=== PATIENT | male | born 1930 | race Caucasian/White ===

== ENCOUNTER 2018-04-05 05:41 | Day surgery (SDC) | payer MEDICARE, BC ==
[2018-04-02 14:34] VITALS: BMI 31.1
[2018-04-05] MEDS ORDERED: ONDANSETRON 4 MG/2 ML VIAL IVP ONE (05:52)
[2018-04-05] MEDS ORDERED: LACTATED RINGERS 1,000 ML IV SCH (05:52)
[2018-04-05] MEDS ORDERED: HYDROmorphone 0.5 MG/0.5 ML SYRINGE IVP PRN (05:52)
[2018-04-05] MEDS ORDERED: DEXAMETHASONE SOD PHOSPHATE 10 MG/ML 1 ML VIAL IV ONE (05:52)
[2018-04-05] MEDS ORDERED: LIDOCAINE 1% 20 ML VIAL (10MG/ML) FOR IV START INTRADERMA ONE (06:16)
[2018-04-05 06:37] VITALS: TEMP 97.9
[2018-04-05 07:00] LABS: Glucose,Whole Blood 118 mg/dL (75-99)
[2018-04-05] MEDS ORDERED: fentaNYL (PF) 50 MCG/ML 2 ML AMP ONE (07:06)
[2018-04-05] MEDS ORDERED: LIDOCAINE 1% INJ 10MG/ML (20 ML MDV) ONE (07:06)
[2018-04-05] MEDS ORDERED: PROPOFOL 10 MG/ML 20 ML VIAL IV ONE (07:06)
[2018-04-05] MEDS ORDERED: GLYCOPYRROLATE 0.2 MG/ML 2 ML VIAL ONE (07:06)
[2018-04-05 08:24] VITALS: BP 161/79; PULSE 42; RESP 16
[2018-04-05 08:24] LABS: Basophils % (A) 0 %; Eosinophils % (A) 0 %; HCT 45.6 % (39.0-53.0); HGB 15.1 gm/dL (13.0-17.5); Lymphocytes # (A) 2.3 k/uL (1.0-4.8); Lymphocytes % (A) 18 %; MCH 31.5 pg (25.0-35.0); MCV 95.4 fL (80.0-100.0); Mean Platelet Volume 8.8; Monocytes # (A) 0.4 k/uL (0-1.0); Monocytes % (A) 3 %; Neutrophils # (A) 10.3 k/uL (1.3-7.7); Neutrophils % (A) 78 %; RBC 4.78 m/uL (4.30-5.90); RDW 15.5 % (11.5-15.5); WBC 13.2 k/uL (3.8-10.6)
--- NOTE | 2018-04-05 08:34 | OP ---
OPERATIVE REPORT DATE OF PROCEDURE: 04/05/2018 PROCEDURE: Bone marrow aspirate and biopsy, PREOPERATIVE DIAGNOSIS: Thrombocytopenia. POSTOPERATIVE DIAGNOSES: Thrombocytopenia. SITE: Right iliac crest. ANESTHESIA: Local with IV systemic sedation. DETAILS: Utilizing sterile technique, the skin overlying the right iliac crest was prepared with Betadine and alcohol. After adequate sterile draping and systemic sedation, a size 11, 4-inch Jamshidi needle was utilized to access the periosteum with ease. A total of 12 mL of aspirate and 7 mm bone core biopsies were obtained. The patient tolerated the procedure very well. There was no immediate procedure related complication. TOTAL BLOOD LOSS: Less than 1 mL. RESULTS: Pending. MMODL / IJN: [id number] /
[2018-04-05 08:44] LABS: Glucose,Whole Blood 102 mg/dL (75-99)
[2018-04-05 09:00] LABS: Platelet Count 62 k/uL (150-450)
== END 2018-04-05 08:53 | disposition home or self-care (01) ==
LOC: OR 05:41
PROVIDERS: ATTEND Internal Medicine Hematology & Oncology
DX: D69.6 Thrombocytopenia, unspecified (principal); D72.828 Other elevated white blood cell count; I10 Essential (primary) hypertension; E78.5 Hyperlipidemia, unspecified; Z85.038 Personal history of other malignant neoplasm of large intestine; Z86.711 Personal history of pulmonary embolism; Z79.899 Other long term (current) drug therapy; Z88.0 Allergy status to penicillin; Z88.8 Allergy status to other drugs, medicaments and biological substances
CPT/HCPCS: 38222; 85025; J2001; J3010; J2704

== ENCOUNTER 2018-05-22 14:45 | Inpatient (IN) | payer MEDICARE, BC ==
[2018-05-22] MEDS ORDERED: SODIUM CHLORIDE 0.9% 1,000 ML IV STA (15:45)
[2018-05-22] MEDS ORDERED: SODIUM CHLORIDE 0.9% 500 ML IV ONE (15:58)
--- NOTE | 2018-05-22 16:39 | XR ---
EXAMINATION: XR chest 2V DATE AND TIME: 05/22/2018 4:23 PM ORDERING PROVIDER: Marcia Jordan CLINICAL INDICATION: difficulty breathing TECHNIQUE: PA and lateral COMPARISON: 04/03/2014 DESCRIPTION: The lungs are clear. The pleural spaces are negative. The cardiac silhouette is mild-moderately enlarged. The aorta is ectatic. The skeletal structures are intact without focal findings. The soft tissues are unremarkable. IMPRESSION: NO ACUTE PROCESS.
[2018-05-22] MEDS: DILTIAZEM 50 MG in SODIUM CHLORIDE 0.9% 40 ML IV SCH ×2 (16:48→23:20)
[2018-05-22 16:53] LABS: Basophils % (A) 0 %; Eosinophils # (A) 0.1 k/uL (0-0.7); Eosinophils % (A) 1 %; Lymphocytes # (A) 1.2 k/uL (1.0-4.8); Lymphocytes % (A) 10 %; MCH 30.8 pg (25.0-35.0); MCHC 32.6 g/dL (31.0-37.0); MCV 94.5 fL (80.0-100.0); Mean Platelet Volume 7.3; Monocytes # (A) 0.4 k/uL (0-1.0); Monocytes % (A) 3 %; Neutrophils # (A) 10.1 k/uL (1.3-7.7); Neutrophils % (A) 86 %; RBC 4.23 m/uL (4.30-5.90); RDW 15.9 % (11.5-15.5); WBC 11.7 k/uL (3.8-10.6)
[2018-05-22 16:59] LABS: Platelet Count 123 k/uL (150-450)
[2018-05-22 17:01] LABS: Albumin 3.2 g/dL (3.5-5.0); Calcium 8.7 mg/dL (8.4-10.2); Magnesium 2.2 mg/dL (1.6-2.3); Potassium 4.4 mmol/L (3.5-5.1); Total Bilirubin 0.6 mg/dL (0.2-1.3); Total Protein 5.5 g/dL (6.3-8.2)
--- NOTE | 2018-05-22 17:05 | ED ---
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 Patient was seen by Dr. Nick earlier where he stated he had increasing shortness of breath and lower extremity swelling. Patient was sent over for an exacerbation of congestive heart failure. Upon arrival to emergency department patient's vital signs stable. Patient admitted to lower extremity increasing edema, and dyspnea increased from baseline however denied chest pain, palpitations, paresthesias, jaw pain, dizziness, confusion, back pain, abdominal pain, muscle weakness, loss of sensation, ataxia, speech changes or any other symptoms at this time. Patient states that his legs have been increasing swelling over the past few weeks, since his admission at [facility] for atrial fibrillation on May 03. In addition patient admits to right lower extremity erythema. Remainder ROS negative. - Related Data Home Medications Medication Instructions Recorded Confirmed Cholecalciferol [Vitamin D3] 1,000 unit PO DAILY 03/28/14 05/22/18 Finasteride [Proscar] 5 mg PO DAILY 03/28/14 05/22/18 Folic Acid 1 mg PO DAILY 03/28/14 05/22/18 Furosemide [Lasix] 20 mg PO HS 03/28/14 05/22/18 Metoprolol Succinate [Toprol XL] 50 mg PO 03/28/14 05/22/18 Nitroglycerin [Nitro-Time] 6.5 mg PO QAM 03/28/14 05/22/18 Potassium Chloride [K-Tab ER] 10 meq PO DAILY 03/28/14 05/22/18 Quinapril HCl [Accupril] 40 mg PO QAM 03/28/14 05/22/18 Atorvastatin Calcium [Lipitor] 40 mg PO DAILY 03/08/18 05/22/18 predniSONE 40 mg PO BID 04/02/18 05/22/18 Rivaroxaban [Xarelto] 15 mg PO AC-SUPPER 05/22/18 05/22/18 Allergies Allergy/AdvReac Type Severity Reaction Status Date / Time hydroxyzine [From Vistaril] Allergy Confusion Verified 05/22/18 20:34 metoclopramide HCl Allergy Unknown Verified 05/22/18 20:34 [From Reglan] Penicillins Allergy Anaphylaxis Verified 05/22/18 20:34 Review of Systems ROS Statement: Those systems with pertinent positive or pertinent negative responses have been documented in the HPI. ROS Other: All systems not noted in ROS Statement are negative. Constitutional: Denies: fever, chills, weakness, weight change Eyes: Denies: eye pain, vision change ENT: Denies: ear pain, hearing loss Respiratory: Reports: dyspnea. Denies: cough, wheezes, hemoptysis, stridor Cardiovascular: Reports: as per HPI, edema. Denies: chest pain, palpitations, dyspnea on exertion, orthopnea, syncope Gastrointestinal: Denies: abdominal pain, nausea, vomiting, diarrhea, constipation, hematemesis, melena Genitourinary: Denies: urgency, dysuria, frequency, hematuria, discharge Musculoskeletal: Denies: back pain Skin: Reports: as per HPI, change in color Neurological: Denies: headache, weakness, numbness, paresthesias, confusion, abnormal gait, vertigo Past Medical History Past Medical History: Coronary Artery Disease (CAD), Cancer, Heart Failure, Hyperlipidemia, Hypertension, Mitral Valve Prolapse (MVP), Prostate Disorder, Pulmonary Embolus (PE) Additional Past Medical History / Comment(s): STATES HAS "LOW PLATELETS" UNSTEADY ON FEET CURRENTLY, HX COLON CA, diverticulitis, KIDNEY STONE History of Any Multi-Drug Resistant Organisms: None Reported Past Surgical History: Bowel Resection, Hernia Repair, Joint Replacement, Orthopedic Surgery Additional Past Surgical History / Comment(s): TOTAL RIGHT KNEE X2, LEFT EAR SX X2, TABITHA ROT.CUFF, KIDNEY STONE SX, LEFT KNEE ARTHROSCOPY, LEFT KNEE REPLACED, LEFT INDEX FINGER AMPUTATED Past Anesthesia/Blood Transfusion Reactions: No Reported Reaction Past Psychological History: Depression Smoking Status: Never smoker Past Alcohol Use History: Rare Past Drug Use History: None Reported - Past Family History Mother Family Medical History: Cancer Additional Family Medical History / Comment(s): HODGKINS Brother(s) Family Medical History: Diabetes Mellitus Sister(s) Family Medical History: Diabetes Mellitus General Exam - General Exam Comments Initial Comments: General: The patient is awake and alert, in no distress, and does not appear acutely ill. Eye: Pupils are equal, round and reactive to light, extra-ocular movements are intact. No nystagmus. There is normal conjunctiva bilaterally. No signs of icterus. Ears, nose, mouth and throat: There are moist mucous membranes and no oral lesions. Neck: The neck is supple, there is no tenderness or JVD. Cardiovascular: There is a irregular rate and rhythm. No murmur, rub or gallop is appreciated. Respiratory: Lungs are clear to auscultation in all lung sung, no appreciable crackles. respirations are non-labored, breath sounds are equal. No wheezes, stridor, rales, or rhonchi. No retractions or cyanosis. Gastrointestinal: Soft, non-distended, non-tender abdomen without masses or organomegaly noted. There is no rebound or guarding present. No CVA tenderness. Bowel sounds are unremarkable. Musculoskeletal: Normal ROM, no tenderness. Strength 5/5. Sensation intact. Pulses equal bilaterally 2+. Neurological: A&O x 3. CN II-XII intact, There are no obvious motor or sensory deficits. Coordination appears grossly intact. Speech is normal. Skin: Skin is warm and dry and no rashes or lesions are noted. Linear scar midline over sternum. Bilateral lower extremity edema +2 pitting. Erythema of the right lower extremities, not warm to touch. Psychiatric: Cooperative, appropriate mood & affect, normal judgment. Limitations: no limitations Course Vital Signs 05/22/18 05/22/18 05/22/18 15:26 16:47 17:02 Temperature 98.3 F Pulse Rate 76 132 H 124 H Respiratory 18 18 18 Rate Blood Pressure 101/69 127/72 115/80 O2 Sat by Pulse 96 99 100 Oximetry 05/22/18 05/22/18 05/22/18 17:30 18:12 18:32 Temperature Pulse Rate 136 H 122 H 126 H Respiratory 18 18 18 Rate Blood Pressure 126/75 114/78 110/77 O2 Sat by Pulse 99 98 96 Oximetry 05/22/18 05/22/18 19:01 20:01 Temperature 97.8 F 97.0 F L Pulse Rate 114 H 122 H Respiratory 18 18 Rate Blood Pressure 124/87 121/79 O2 Sat by Pulse 96 99 Oximetry EKG Findings - EKG Comments: EKG Findings:: Ventricular rate 126bpm, QRS 94ms, QT/QTc 308/446 Atrial Fibrillation with RVR, left axis deviation. Abnormal EKG. Medical Decision Making - Medical Decision Making Case discussed with Dr. Gooden in detail throughout ER stay. Pt sent from [facility] for CHF exacerbation. Upon arrival pt complained of increased LE edema and dyspnea. Pt was placed on 2L O2 via nasal cannula and continuous monitoring coordinator , EKG obtained revealed Atrial fibrillation with RVR. VS stable BP 104/75. Pt placed on 5mg/hr cardizem drip, given daily dose of xarelo PO, 500 mL bolus of normal saline, BNP, troponin, CBC, CMP, magnesium, PT, PTT/INR, urinalysis obtained. BNP elevated at 5270 concerning for CHF exacerbation-no previous value available for comparison, troponin mildly elevated at 0.[address] Gooden and myself feel this is do to CHF rather than acute coronary syndrome. Pt plt 123 pt has ITP for which he follows Dr. Zamora. Last plt count 116 per paperwork presented. Remainder of laboratory values unremarkable. CXR obtained revealed no pulmonary congestion. Dr. Hess was contacted and spoke to attending Dr. Gooden and pt was admitted with cardiology consult-Dr. Calderon. Pt was transferred to the floor around 8:00pm in stable condition. - Lab Data Result diagrams: 05/22/18 16:42 05/22/18 16:42 Lab Results 05/22/18 05/22/18 05/22/18 Range/Units 16:42 16:42 16:42 WBC 11.7 H (3.8-10.6) k/uL RBC 4.23 L (4.30-5.90) m/uL Hgb 13.0 (13.0-17.5) gm/dL Hct 40.0 (39.0-53.0) % MCV 94.5 (80.0-100.0) fL MCH 30.8 (25.0-35.0) pg MCHC 32.6 (31.0-37.0) g/dL RDW 15.9 H (11.5-15.5) % Plt Count 123 L D (150-450) k/uL Neutrophils % 86 % Lymphocytes % 10 % Monocytes % 3 % Eosinophils % 1 % Basophils % 0 % Neutrophils # 10.1 H (1.3-7.7) k/uL Lymphocytes # 1.2 (1.0-4.8) k/uL Monocytes # 0.4 (0-1.0) k/uL Eosinophils # 0.1 (0-0.7) k/uL Basophils # 0.0 (0-0.2) k/uL PT (9.0-12.0) sec INR (<1.2) APTT (22.0-30.0) sec Sodium 139 (137-145) mmol/L Potassium 4.4 (3.5-5.1) mmol/L Chloride 107 (98-107) mmol/L Carbon Dioxide 26 (22-30) mmol/L Anion Gap 6 mmol/L BUN 38 H (9-20) mg/dL Creatinine 0.90 (0.66-1.25) mg/dL Est GFR (CKD-EPI)AfAm 88 (>60 ml/min/1.73 sqM) Est GFR (CKD-EPI)NonAf 76 (>60 ml/min/1.73 sqM) Glucose 116 H (74-99) mg/dL Calcium 8.7 (8.4-10.2) mg/dL Magnesium 2.2 (1.6-2.3) mg/dL Total Bilirubin 0.6 (0.2-1.3) mg/dL AST 26 (17-59) U/L ALT 50 (21-72) U/L Alkaline Phosphatase 85 (38-126) U/L Total Creatine Kinase 30 L (55-170) U/L CK-MB (CK-2) 1.9 (0.0-2.4) ng/mL CK-MB (CK-2) Rel Index 6.3 Troponin I 0.081 H* (0.000-0.034) ng/mL NT-Pro-B Natriuret Pep pg/mL Total Protein 5.5 L (6.3-8.2) g/dL Albumin 3.2 L (3.5-5.0) g/dL Urine Color Urine Appearance (Clear) Urine pH (5.0-8.0) Ur Specific Toponas (1.001-1.035) Urine Protein (Negative) Urine Glucose (UA) (Negative) Urine Ketones (Negative) Urine Blood (Negative) Urine Nitrite (Negative) Urine Bilirubin (Negative) Urine Urobilinogen (<2.0) mg/dL Ur Leukocyte Esterase (Negative) Urine RBC (0-5) /hpf Urine WBC (0-5) /hpf Ur Squamous Epith Cells (0-4) /hpf Hyaline Casts (0-2) /lpf Urine Mucus (None) /hpf 05/22/18 05/22/18 05/22/18 Range/Units 16:42 16:42 17:40 WBC (3.8-10.6) k/uL RBC (4.30-5.90) m/uL Hgb (13.0-17.5) gm/dL Hct (39.0-53.0) % MCV (80.0-100.0) fL MCH (25.0-35.0) pg MCHC (31.0-37.0) g/dL RDW (11.5-15.5) % Plt Count (150-450) k/uL Neutrophils % % Lymphocytes % % Monocytes % % Eosinophils % % Basophils % % Neutrophils # (1.3-7.7) k/uL Lymphocytes # (1.0-4.8) k/uL Monocytes # (0-1.0) k/uL Eosinophils # (0-0.7) k/uL Basophils # (0-0.2) k/uL PT 10.4 (9.0-12.0) sec INR 1.1 (<1.2) APTT 28.2 (22.0-30.0) sec Sodium (137-145) mmol/L Potassium (3.5-5.1) mmol/L Chloride (98-107) mmol/L Carbon Dioxide (22-30) mmol/L Anion Gap mmol/L BUN (9-20) mg/dL Creatinine (0.66-1.25) mg/dL Est GFR (CKD-EPI)AfAm (>60 ml/min/1.73 sqM) Est GFR (CKD-EPI)NonAf (>60 ml/min/1.73 sqM) Glucose (74-99) mg/dL Calcium (8.4-10.2) mg/dL Magnesium (1.6-2.3) mg/dL Total Bilirubin (0.2-1.3) mg/dL AST (17-59) U/L ALT (21-72) U/L Alkaline Phosphatase (38-126) U/L Total Creatine Kinase (55-170) U/L CK-MB (CK-2) (0.0-2.4) ng/mL CK-MB (CK-2) Rel Index Troponin I (0.000-0.034) ng/mL NT-Pro-B Natriuret Pep 5270 pg/mL Total Protein (6.3-8.2) g/dL Albumin (3.5-5.0) g/dL Urine Color Yellow Urine Appearance Cloudy (Clear) Urine pH 5.0 (5.0-8.0) Ur Specific Toponas 1.017 (1.001-1.035) Urine Protein 1+ H (Negative) Urine Glucose (UA) Negative (Negative) Urine Ketones Negative (Negative) Urine Blood Trace H (Negative) Urine Nitrite Negative (Negative) Urine Bilirubin Negative (Negative) Urine Urobilinogen <2.0 (<2.0) mg/dL Ur Leukocyte Esterase Negative (Negative) Urine RBC <1 (0-5) /hpf Urine WBC <1 (0-5) /hpf Ur Squamous Epith Cells <1 (0-4) /hpf Hyaline Casts 3 H (0-2) /lpf Urine Mucus Rare H (None) /hpf - EKG Data -: EKG Interpreted by Me (and by Dr. Gooden) - Radiology Data Radiology results: report reviewed, image reviewed (by myself and doctor Giacomo) Disposition Clinical Impression: Atrial fibrillation with RVR Disposition: ADMITTED IP TO THIS [facility] Condition: Stable Is patient prescribed a controlled substance at d/c from ED?: No Time of Disposition: 20:10 (05/23/2018)
[2018-05-22 17:10] LABS: INR 1.1 (<1.2); Partial Thromboplastin Time 28.2 sec (22.0-30.0); Prothrombin Time 10.4 sec (9.0-12.0)
[2018-05-22 17:27] LABS: Creatine Kinase MB 1.9 ng/mL (0.0-2.4)
[2018-05-22 17:35] LABS: Troponin I 0.081 ng/mL (0.000-0.034)
[2018-05-22] MEDS ORDERED: RIVAROXABAN 15 MG TAB PO STA (17:41)
[2018-05-22 17:50] LABS: Appearance,Urine Cloudy (Clear); Bilirubin,Urine Negative (Negative); Blood,Urine Trace (Negative); Color,Urine Yellow; Glucose,Urine (UA) Negative (Negative); Hyaline Casts,Urine 3 /lpf (0-2); Ketones,Urine Negative (Negative); Leukocyte Esterase,Urine Negative (Negative); Mucus,Urine Rare /hpf; Nitrite,Urine Negative (Negative); Protein,Urine 1+ (Negative); RBC,Urine <1 /hpf (0-5); Specific Gravity,Urine 1.017 (1.001-1.035); Squamous Epithelial Cell,Urine <1 /hpf (0-4); Urobilinogen,Urine <2.0 mg/dL (<2.0); WBC,Urine <1 /hpf (0-5)
[2018-05-22] MEDS ORDERED: NALOXONE 0.4 MG/ML 1 ML VIAL IV PRN (18:28)
[2018-05-22] MEDS ORDERED: IBUPROFEN 400 MG TAB PO PRN (18:28)
[2018-05-22] MEDS ORDERED: SODIUM CHLORIDE 0.9% 1,000 ML IV SCH (18:30)
[2018-05-22] MEDS ORDERED: FUROSEMIDE 20 MG TAB PO SCH (22:45)
[2018-05-22] MEDS: predniSONE 20 MG TAB PO SCH (23:18)
[2018-05-22] MEDS: METOPROLOL SUCCINATE (ER) 50 MG TAB.ER.24H PO SCH (23:18)
[2018-05-23] MEDS ORDERED: FUROSEMIDE 10 MG/ML 4 ML VIAL IV SCH (08:00)
[2018-05-23] MEDS ORDERED: FUROSEMIDE 10 MG/ML 2 ML VIAL IV SCH (08:00)
[2018-05-23] MEDS: ATORVASTATIN 40 MG TAB PO SCH (09:10)
[2018-05-23] MEDS: POTASSIUM CHLORIDE ER 10 MEQ TAB.ER.PRT PO SCH (09:11)
[2018-05-23] MEDS: LISINOPRIL 20 MG TAB PO SCH (09:11)
[2018-05-23] MEDS: NITROGLYCERIN EXTENDED RELEASE 6.5 MG CAPSULE.ER PO SCH (09:11)
[2018-05-23] MEDS: predniSONE 20 MG TAB PO SCH ×2 (09:18→21:26)
--- NOTE | 2018-05-23 13:48 | P.PN ---
Subjective Progress Note Date: 05/23/18 Principal diagnosis: CHF, A. fib This is an 87-year-old gentleman with known history of ischemic cardiomyopathy, hyperlipidemia, peripheral vascular disease, hypertension, who was admitted to the hospital yesterday by Dr. Calderon with congestive heart failure and atrial fibrillation. Patient was seen and examined today, no accurate intake and output performed. Weight shows that it's actually upper kilograms today. Patient is quite short of breath at the time of our examination. At pressure 110/70 with a heart rate in the low 100s, 98% on room air. White blood cell count 11.7, hemoglobin 13, platelet count 123. Sodium 139, potassium 4.4, BUN 38, creatinine 0.9. Magnesium 2.2, troponin 0.081 and BNP level 5270. It appears that the patient had an echocardiogram with Doppler study performed in April of this year which revealed an ejection fraction of 35% with mild to moderate mitral regurg and moderate aortic regurg. Objective - Vital Signs Vital signs: Vital Signs Temp 97.0 F L 05/23/18 04:00 Pulse 107 H 05/23/18 12:00 Resp 16 05/23/18 12:00 BP 110/74 05/23/18 12:00 Pulse Ox 98 05/23/18 12:00 Intake & Output 05/22/18 05/23/18 05/23/18 18:59 06:59 18:59 Intake Total 82.667 118 Balance 82.667 118 Weight 95.254 kg 94.4 kg Intake: IV 50 Diltiazem 50 mg In Sodium 50 Chloride 0.9% 40 ml @ 5 MG/HR 5 mls/hr IV .Q10H ALEXIS Rx#:[id number] Intake, IV Titration 32.667 Amount Diltiazem 50 mg In Sodium 32.667 Chloride 0.9% 40 ml @ 5 MG/HR 5 mls/hr IV .Q10H ALEXIS Rx#:[id number] Oral 118 Other: Voiding Method Toilet Toilet # Voids 2 - Exam PHYSICAL EXAMINATION: GENERAL: 87-year-old gentleman in no acute distress at the time of our examination HEENT: Head is atraumatic, normocephalic. Pupils equal, round. Sclera anicteric. Conjunctiva are clear. Mucous membranes of the mouth are moist. Neck is supple. There is no elevated jugular venous pressure.] bruit is heard. HEART EXAMINATION: Heart S1 and S2 irregular irregular a systolic ejection murmur is heard at the base CHEST EXAMINATION: Lungs reveal rales bilaterally with diminished air entry to the bases. ABDOMEN: Soft, nontender. Bowel sounds are heard. No organomegaly noted. EXTREMITIES: 2+ peripheral pulses with 1+ evidence of peripheral edema and no calf tenderness noted. NEUROLOGIC patient is awake, alert and oriented ?-3. . - Labs CBC & Chem 7: 05/22/18 16:42 05/22/18 16:42 Labs: Abnormal Lab Results - Last 24 Hours (Table) 05/22/18 05/22/18 05/22/18 Range/Units 16:42 16:42 16:42 WBC 11.7 H (3.8-10.6) k/uL RBC 4.23 L (4.30-5.90) m/uL RDW 15.9 H (11.5-15.5) % Plt Count 123 L D (150-450) k/uL Neutrophils # 10.1 H (1.3-7.7) k/uL BUN 38 H (9-20) mg/dL Glucose 116 H (74-99) mg/dL Total Creatine Kinase 30 L (55-170) U/L Troponin I 0.081 H* (0.000-0.034) ng/mL Total Protein 5.5 L (6.3-8.2) g/dL Albumin 3.2 L (3.5-5.0) g/dL Urine Protein (Negative) Urine Blood (Negative) Hyaline Casts (0-2) /lpf Urine Mucus (None) /hpf 05/22/18 Range/Units 17:40 WBC (3.8-10.6) k/uL RBC (4.30-5.90) m/uL RDW (11.5-15.5) % Plt Count (150-450) k/uL Neutrophils # (1.3-7.7) k/uL BUN (9-20) mg/dL Glucose (74-99) mg/dL Total Creatine Kinase (55-170) U/L Troponin I (0.000-0.034) ng/mL Total Protein (6.3-8.2) g/dL Albumin (3.5-5.0) g/dL Urine Protein 1+ H (Negative) Urine Blood Trace H (Negative) Hyaline Casts 3 H (0-2) /lpf Urine Mucus Rare H (None) /hpf Assessment and Plan Plan: Assessment and plan #1 systolic congestive heart failure acute on chronic #2 Ischemic cardiomyopathy #3 Hyperlipidemia #4 Family history of premature coronary artery disease #5 Hypertension #6 Chronic persistent atrial fibrillation Plan We will continue the patient on current dose of IV Lasix, monitor intake and output closely. Continue Lipitor, lisinopril 40 mg daily, metoprolol 50 mg daily, Nitro-Bid 6.5 daily, K-Dur 10 milligrams daily, Xarelto 15 mg daily. Patient was noted to also be receiving IV fluids, we'll decrease this to 10 mg per hour. DNP note has been reviewed, I agree with a documented findings and plan of care. Patient was seen and examined.
--- NOTE | 2018-05-23 15:17 | US ---
EXAMINATION TYPE: US venous doppler duplex LE RT DATE OF EXAM: 05/23/2018 2:56 PM COMPARISON: NONE CLINICAL HISTORY: edema. SIDE PERFORMED: Right TECHNIQUE: The lower extremity deep venous system is examined utilizing real time linear array sonog domonique with graded compression, doppler sonography and color-flow sonography. VESSELS IMAGED: External Iliac Vein (EIV) Common Femoral Vein Deep Femoral Vein Greater Saphenous Vein * Femoral Vein Popliteal Vein Small Saphenous Vein * Proximal Calf Veins (* superficial vessels) right leg swelling with pitting edema. Right Leg: Negative for DVT Grayscale, color doppler, spectral doppler imaging performed of the deep veins of the right lower ext remity. There is normal flow, compressibility, vascular waveforms. IMPRESSION: No ultrasound evidence for acute DVT in the right lower extremity.
--- NOTE | 2018-05-23 15:17 | P.HPIM ---
History of Present Illness H&P Date: 05/23/18 87 years old female patient of Dr. Calderon and Dr. Jay past medical history of hypertension, hyperlipidemia pulmonary embolism in 1984, history of recently diagnosed with ITP, history of colon cancer, mitral valve prolapse, BPH presents in with lower extremity swelling and uncontrolled heartrate from Dr. Calderon's office. Patient was just admitted in [facility] 2 weeks ago for similar presentation and was discharged on improvement. Echocardiogram done in the hospital suggest EF of 30-35% with hypokinesis of inferior apical and lateral wall. Vitals on ER suggested heart rate of 108, blood pressure 116/68 saturating 98% on 2 L. Labs are suggestive of leukocytosis 11.7, platelet 123, BUN/creatinine 38, creatinine 0.9 one set of troponin with slightly evaluation 0.081, BNP 5270, albumin 3.2 urinalysis was clear. Patient was admitted for acute systolic heart failure and management of lower extremity swelling. Cardiology has already seen the patient started on Lasix 40 IV every 8. Patient was on Cardizem drip which was discontinued midnight mentioned that patient is very weak and is unable to use his walker. Will have physical therapy to evaluate the patient Review of Systems Constitutional: Denies chills, Denies fever, Denies lethargy, Denies malaise, Denies poor appetite, Denies weakness, Denies weight loss Eyes: denies decreased vision, denies diplopia, denies discharge, denies pain Ears: deny: decreased hearing Ears, nose, mouth and throat: Denies dental pain, Denies headache, Denies nasal discharge, Denies nose pain Cardiovascular: Denies chest pain, endorses decreased exercise tolerance, endorses lower extremity edema, Denies high blood pressure, endorses irregular heart beat, Denies palpitations, Denies paroxysmal nocturnal dyspnea, Denies shortness of breath Respiratory: Denies congestion, Denies cough, Denies cough with sputum, Denies dyspnea, Denies home oxygen, Denies wheezing Gastrointestinal: Denies abdominal pain, Denies change in bowel habits, Denies coffee ground emesis, Denies early satiety, Denies excessive gas, Denies heartburn, Denies hematemesis, Denies hematochezia, Denies loss of appetite, Denies nausea, Denies vomiting Genitourinary: Denies dysuria, Denies flank pain, Denies kidney stones, Denies menorrhagia, Denies urgency, Denies urinary frequency Musculoskeletal: Endorses gait dysfunction, Denies limitation of motion, Denies morning stiffness, Denies muscle cramps uses a walker Integumentary: Denies rash, Denies wounds, Denies brittle nails, Denies change in hair/nails, Denies darkening of skin Neurological: Denies balance difficulties, Denies change in speech, Denies double vision, Denies gait dysfunction, Denies loss of vision, Denies motor disturbance, Denies numbness, Denies paralysis, Denies paresthesias, Denies seizures Psychiatric: Denies anxiety, Denies depression Endocrine: Denies excessive sweating, Denies excessive thirst, Denies high blood sugars, Denies palpitations Hematologic/Lymphatic: Denies easy bruising, Denies lymphadenopathy Past Medical History Past Medical History: Cancer, Heart Failure, Hyperlipidemia, Hypertension, Mitral Valve Prolapse (MVP), Prostate Disorder, Pulmonary Embolus (PE) Additional Past Medical History / Comment(s): STATES HAS "LOW PLATELETS" UNSTEADY ON FEET CURRENTLY, HX COLON CA, diverticulitis, KIDNEY STONE History of Any Multi-Drug Resistant Organisms: None Reported Past Surgical History: Bowel Resection, Hernia Repair, Joint Replacement, Orthopedic Surgery Additional Past Surgical History / Comment(s): TOTAL RIGHT KNEE X2, LEFT EAR SX X2, TABITHA ROT.CUFF, KIDNEY STONE SX, LEFT KNEE ARTHROSCOPY, LEFT KNEE REPLACED, LEFT INDEX FINGER AMPUTATED Past Anesthesia/Blood Transfusion Reactions: No Reported Reaction Past Psychological History: Depression Smoking Status: Never smoker Past Alcohol Use History: Rare Past Drug Use History: None Reported - Past Family History Brother(s) Family Medical History: Diabetes Mellitus Sister(s) Family Medical History: Diabetes Mellitus Mother Family Medical History: Cancer Additional Family Medical History / Comment(s): HODGKINS Medications and Allergies Home Medications Medication Instructions Recorded Confirmed Type Cholecalciferol [Vitamin D3] 1,000 unit PO DAILY 03/28/14 05/22/18 History Finasteride [Proscar] 5 mg PO DAILY 03/28/14 05/22/18 History Folic Acid 1 mg PO DAILY 03/28/14 05/22/18 History Furosemide [Lasix] 20 mg PO HS 03/28/14 05/22/18 History Metoprolol Succinate [Toprol XL] 50 mg PO 03/28/14 05/22/18 History Nitroglycerin [Nitro-Time] 6.5 mg PO QAM 03/28/14 05/22/18 History Potassium Chloride [K-Tab ER] 10 meq PO DAILY 03/28/14 05/22/18 History Quinapril HCl [Accupril] 40 mg PO QAM 03/28/14 05/22/18 History Atorvastatin Calcium [Lipitor] 40 mg PO DAILY 03/08/18 05/22/18 History predniSONE 40 mg PO BID 04/02/18 05/22/18 History Rivaroxaban [Xarelto] 15 mg PO AC-SUPPER 05/22/18 05/22/18 History Allergies Allergy/AdvReac Type Severity Reaction Status Date / Time hydroxyzine [From Vistaril] Allergy Confusion Verified 05/22/18 20:34 metoclopramide HCl Allergy Unknown Verified 05/22/18 20:34 [From Reglan] Penicillins Allergy Anaphylaxis Verified 05/22/18 20:34 Physical Exam Vitals: Vital Signs Temp Pulse Pulse Resp BP BP Pulse Ox 05/23/18 12:00 107 H 16 110/74 98 05/23/18 11:36 16 05/23/18 08:00 111 H 16 116/68 98 05/23/18 04:00 97.0 F L 107 H 18 123/79 97 05/23/18 00:00 97.4 F L 108 H 18 102/73 99 05/22/18 20:01 97.0 F L 122 H 18 121/79 99 05/22/18 19:01 97.8 F 114 H 18 124/87 96 05/22/18 18:32 126 H 18 110/77 96 05/22/18 18:12 122 H 18 114/78 98 05/22/18 17:30 136 H 18 126/75 99 05/22/18 17:02 124 H 18 115/80 100 05/22/18 16:47 132 H 18 127/72 99 05/22/18 15:26 98.3 F 76 18 101/69 96 Intake and Output 05/22/18 05/23/18 05/23/18 22:59 06:59 14:59 Intake Total 82.667 118 Balance 82.667 118 Intake: IV 50 Diltiazem 50 mg In Sodium 50 Chloride 0.9% 40 ml @ 5 MG/HR 5 mls/hr IV .Q10H [facility] Rx#:[id number] Intake, IV Titration 32.667 Amount Diltiazem 50 mg In Sodium 32.667 Chloride 0.9% 40 ml @ 5 MG/HR 5 mls/hr IV .Q10H ALEXIS Rx#:[id number] Oral 118 Other: Voiding Method Toilet Toilet # Voids 1 2 Weight 93.4 kg 94.4 kg - Constitutional General appearance: cooperative, no acute distress, obese - EENT Eyes: anicteric sclerae, PERRLA, normal appearance ENT: hearing grossly normal - Neck Neck: no lymphadenopathy, normal ROM, no other, no rigidity, no stridor, no thyromegaly - Respiratory Respiratory: bilateral: CTA, negative: diminished, dullness, rales, rhonchi - Cardiovascular Rhythm: Irregularly irregular Heart sounds: normal: S1, S2 Abnormal Heart Sounds: Positive for 2+ systolic murmur, no diastolic murmur, no rub, no S3 Gallop, no S4 Gallop, no click, bilateral 3+ lower extremity edema - Gastrointestinal General gastrointestinal: normal bowel sounds, soft - Integumentary Integumentary: no rash - Neurologic Neurologic: CNII-XII intact - Musculoskeletal Musculoskeletal: Generalized weakness strength equal bilaterally - Psychiatric Psychiatric: A&O x's 3, appropriate affect Results CBC & Chem 7: 05/22/18 16:42 05/22/18 16:42 Labs: Abnormal Lab Results - Last 24 Hours (Table) 05/22/18 05/22/18 05/22/18 Range/Units 16:42 16:42 16:42 WBC 11.7 H (3.8-10.6) k/uL RBC 4.23 L (4.30-5.90) m/uL RDW 15.9 H (11.5-15.5) % Plt Count 123 L D (150-450) k/uL Neutrophils # 10.1 H (1.3-7.7) k/uL BUN 38 H (9-20) mg/dL Glucose 116 H (74-99) mg/dL Total Creatine Kinase 30 L (55-170) U/L Troponin I 0.081 H* (0.000-0.034) ng/mL Total Protein 5.5 L (6.3-8.2) g/dL Albumin 3.2 L (3.5-5.0) g/dL Urine Protein (Negative) Urine Blood (Negative) Hyaline Casts (0-2) /lpf Urine Mucus (None) /hpf 05/22/18 Range/Units 17:40 WBC (3.8-10.6) k/uL RBC (4.30-5.90) m/uL RDW (11.5-15.5) % Plt Count (150-450) k/uL Neutrophils # (1.3-7.7) k/uL BUN (9-20) mg/dL Glucose (74-99) mg/dL Total Creatine Kinase (55-170) U/L Troponin I (0.000-0.034) ng/mL Total Protein (6.3-8.2) g/dL Albumin (3.5-5.0) g/dL Urine Protein 1+ H (Negative) Urine Blood Trace H (Negative) Hyaline Casts 3 H (0-2) /lpf Urine Mucus Rare H (None) /hpf Thrombosis Risk Factor Assmnt - DVT/VTE Prophylaxis DVT/VTE Prophylaxis: Pharmacologic Prophylaxis ordered - Choose All That Apply Each Factor Represents 1 point: Obesity (BMI >25), Swollen legs (current) Other Risk Factors: Yes Each Risk Factor Represents 3 Points: Age 75 years or older, History of DVT/PE Other congenital or acquired thrombophilia - If yes, enter type in comment: No Thrombosis Risk Factor Assessment Total Risk Factor Score: 8 Thrombosis Risk Factor Assessment Level: High Risk Assessment and Plan Plan: #1 atrial fibrillation with RVR. Continue metoprolol 50 mg at bedtime. Continue xarelto #2 acute systolic congestive heart failure with ejection fraction last reported to be 30-35%. Patient continue on Lasix drip at 10 mg gram per hour. Continue Aldactone 25 mg twice a day. Continue aspirin continue atorvastatin continue lisinopril 40 mg every morning #3 ITP continue to monitor platelets. Continue prednisone at 40 mg twice a day as recommended by Dr. webb. Bone marrow biopsy done recently suggestive of ITP no cancer cells seen as per patient. #4 history of BPH continue finasteride 5 mg by mouth daily #5 history of pulmonary embolism in 1984 denies any recent blood clots. #6 bilateral lower extremity swelling right worse than left with overlying swelling and redness. Ultrasound Doppler lower extremity on the right ordered. If positive will consider doing CTA chest has has history of pulmonary embolism. #7 history of colon cancer status post bowel resection in remission. #8 DVT prophylaxis on xarelto #9 GI prophylaxis with Pepcid 20 mg daily #10 code status full code Patient may need 1-2 inpatient nights for stabilization Disposition PT OT consulted possible [facility] facility due to generalized weakness and decline in functional status at home currently using walker
[2018-05-23] MEDS: RIVAROXABAN 15 MG TAB PO SCH (16:46)
[2018-05-23] MEDS: FUROSEMIDE 250 MG in SODIUM CHLORIDE 0.9% 225 ML IVP SCH (16:46)
[2018-05-23] MEDS: SPIRONOLACTONE 25 MG TAB PO SCH (21:26)
[2018-05-23] MEDS: METOPROLOL SUCCINATE (ER) 50 MG TAB.ER.24H PO SCH (21:26)
[2018-05-24 06:32] LABS: Calcium 8.5 mg/dL (8.4-10.2); Potassium 3.7 mmol/L (3.5-5.1)
[2018-05-24] MEDS ORDERED: DEXTROSE 5% IN WATER 100 ML with AMIODARONE 150 MG IV ONE (08:00)
[2018-05-24] MEDS: ATORVASTATIN 40 MG TAB PO SCH (09:00)
[2018-05-24] MEDS: FINASTERIDE 5 MG TAB PO SCH (09:00)
[2018-05-24] MEDS: SPIRONOLACTONE 25 MG TAB PO SCH ×2 (09:01→20:54)
[2018-05-24] MEDS: POTASSIUM CHLORIDE ER 10 MEQ TAB.ER.PRT PO SCH (09:01)
[2018-05-24] MEDS: predniSONE 20 MG TAB PO SCH ×2 (09:01→20:53)
[2018-05-24] MEDS: AMIODARONE 450 MG in DEXTROSE 5% IN WATER 250 ML IV SCH ×4 (09:19→15:55)
[2018-05-24] MEDS: LISINOPRIL 20 MG TAB PO SCH (09:37)
[2018-05-24] MEDS: NITROGLYCERIN EXTENDED RELEASE 6.5 MG CAPSULE.ER PO SCH (09:37)
[2018-05-24] MEDS ORDERED: NITROGLYCERIN EXTENDED RELEASE 6.5 MG CAPSULE.ER PO SCH (09:39)
[2018-05-24] MEDS ORDERED: LISINOPRIL 20 MG TAB PO SCH (12:00)
--- NOTE | 2018-05-24 14:08 | P.PN ---
Subjective Progress Note Date: 05/24/18 87 years old female patient of Dr. Calderon and Dr. Jay past medical history of hypertension, hyperlipidemia pulmonary embolism in 1984, history of recently diagnosed with ITP, history of colon cancer, mitral valve prolapse, BPH presents in with lower extremity swelling and uncontrolled heartrate from Dr. Calderon's office. Patient was just admitted in [facility] 2 weeks ago for similar presentation and was discharged on improvement. Echocardiogram done in the hospital suggest EF of 30-35% with hypokinesis of inferior apical and lateral wall. Vitals on ER suggested heart rate of 108, blood pressure 116/68 saturating 98% on 2 L. Labs are suggestive of leukocytosis 11.7, platelet 123, BUN/creatinine 38, creatinine 0.9 one set of troponin with slightly evaluation 0.081, BNP 5270, albumin 3.2 urinalysis was clear. Patient was admitted for acute systolic heart failure and management of lower extremity swelling. Cardiology has already seen the patient started on Lasix 40 IV every 8. Patient was on Cardizem drip which was discontinued midnight mentioned that patient is very weak and is unable to use his walker. Will have physical therapy to evaluate the patient 05/24: Patient has been started on amiodarone drip for blood pressure is on the low side. We'll plan to discontinue lisinopril. Lasix drip is also in place which will be decreased to 5 mg per hour. Patient has had improvement of his lower extremity edema. Ultrasound was negative for DVT. We'll plan to add in PT and OT once he is stable and can participate. Objective - Vital Signs Vital signs: Vital Signs Temp 97.5 F L 05/24/18 09:00 Pulse 158 H 05/24/18 09:00 Resp 20 05/24/18 09:00 BP 90/62 05/24/18 10:30 Pulse Ox 98 05/24/18 09:00 Intake & Output 05/23/18 05/24/18 05/24/18 18:59 06:59 18:59 Intake Total 478 180 Output Total 700 900 Balance 608 700 -720 Weight 90.9 kg Intake: Oral 478 180 Output: Urine 700 900 Other: Voiding Method Toilet Toilet # Bowel Movements 2 - Exam - Constitutional General appearance: cooperative, no acute distress, obese - EENT Eyes: anicteric sclerae, PERRLA, normal appearance ENT: hearing grossly normal - Neck Neck: no lymphadenopathy, normal ROM, no other, no rigidity, no stridor, no thyromegaly - Respiratory Respiratory: bilateral: CTA, negative: diminished, dullness, rales, rhonchi - Cardiovascular Rhythm: Irregularly irregular Heart sounds: normal: S1, S2 Abnormal Heart Sounds: Positive for 2+ systolic murmur, no diastolic murmur, no rub, no S3 Gallop, no S4 Gallop, no click, bilateral 3+ lower extremity edema - Gastrointestinal General gastrointestinal: normal bowel sounds, soft - Integumentary Integumentary: no rash - Neurologic Neurologic: CNII-XII intact - Musculoskeletal Musculoskeletal: Generalized weakness strength equal bilaterally - Psychiatric Psychiatric: A&O x's 3, appropriate affect - Labs CBC & Chem 7: 05/22/18 16:42 05/24/18 05:43 Labs: Abnormal Lab Results - Last 24 Hours (Table) 05/23/18 05/23/18 05/24/18 Range/Units 16:19 22:06 05:43 Carbon Dioxide 32 H (22-30) mmol/L BUN 32 H (9-20) mg/dL Glucose 164 H (74-99) mg/dL Troponin I 0.075 H* 0.077 H* (0.000-0.034) ng/mL Assessment and Plan Plan: #1 atrial fibrillation with RVR. Continue metoprolol 25 mg 4 times daily, amiodarone drip, Xarelto. Cardiology consult appreciated. #2 acute systolic heart failure with ejection fraction last reported to be 30-35 %. Patient continue on Lasix drip decreased to 5 mg per hour. Continue Aldactone 25 mg twice a day. Continue atorvastatin area and lisinopril discontinued due to hypotension. #3 ITP continue to monitor platelets. Continue prednisone at 40 mg twice a day as recommended by Dr. Javier. Bone marrow biopsy done recently suggestive of ITP no cancer cells seen as per patient. #4 BPH continue finasteride 5 mg by mouth daily #5 history of pulmonary embolism in 1984 denies any recent blood clots. #6 bilateral lower extremity swelling right worse than left with overlying swelling and redness improving. Ultrasound Doppler lower extremity on the right is negative for DVT. #7 history of colon cancer status post bowel resection in remission. #8 DVT prophylaxis on xarelto #9 GI prophylaxis with Pepcid 20 mg daily #10 code status full code Discharge plan: Home with homecare. PT and OT evaluations. Impression and plan of care have been directed as dictated by the signing physician. Mayela Lenz nurse practitioner acting as scribe for signing physician.
--- NOTE | 2018-05-24 14:59 | P.PN ---
Subjective Progress Note Date: 05/24/18 Principal diagnosis: CHF, A. fib This is an 87-year-old gentleman with known history of ischemic cardiomyopathy, hyperlipidemia, peripheral vascular disease, hypertension, who was admitted to the hospital yesterday by Dr. Calderon with congestive heart failure and atrial fibrillation. Patient was seen and examined today, no accurate intake and output performed. Weight shows that it's actually upper kilograms today. Patient is quite short of breath at the time of our examination. At pressure 110/70 with a heart rate in the low 100s, 98% on room air. White blood cell count 11.7, hemoglobin 13, platelet count 123. Sodium 139, potassium 4.4, BUN 38, creatinine 0.9. Magnesium 2.2, troponin 0.081 and BNP level 5270. It appears that the patient had an echocardiogram with Doppler study performed in April of this year which revealed an ejection fraction of 35% with mild to moderate mitral regurg and moderate aortic regurg.\ 05/24/2018 Patient seen and examined this morning, heart rate up in the 140s to 150s range. IV amiodarone was initiated. He did diuresis through the night last night, his weight is down 4 kg today, 32 as his BUN and 1.5 creatinine today. Overall he does state that his breathing is improving, still appears to be short of breath. Peripheral edema is improving significantly. Blood pressure 96/60 with a heart rate of 120, 98% on 2 L of oxygen. Sodium 138, potassium 3.7 , BUN 32, creatinine 1.1. Venous duplex study negative for DVT in the right leg. Objective - Vital Signs Vital signs: Vital Signs Temp 97.3 F L 05/24/18 12:00 Pulse 125 H 05/24/18 12:00 Resp 18 05/24/18 12:00 BP 92/67 05/24/18 12:00 Pulse Ox 98 05/24/18 12:00 Intake & Output 05/23/18 05/24/18 05/24/18 18:59 06:59 18:59 Intake Total 478 180 Output Total 700 900 Balance 478 700 -720 Weight 90.9 kg Intake: Oral 478 180 Output: Urine 700 900 Other: Voiding Method Toilet Toilet # Bowel Movements 2 - Exam PHYSICAL EXAMINATION: GENERAL: 87-year-old gentleman in no acute distress at the time of our examination HEENT: Head is atraumatic, normocephalic. Pupils equal, round. Sclera anicteric. Conjunctiva are clear. Mucous membranes of the mouth are moist. Neck is supple. There is no elevated jugular venous pressure.] bruit is heard. HEART EXAMINATION: Heart S1 and S2 irregular irregular a systolic ejection murmur is heard at the base CHEST EXAMINATION: Lungs reveal diminished air entry to bilateral bases. ABDOMEN: Soft, nontender. Bowel sounds are heard. No organomegaly noted. EXTREMITIES: 2+ peripheral pulses with trace to 1+ evidence of peripheral edema and no calf tenderness noted. NEUROLOGIC patient is awake, alert and oriented ?-3. . - Labs CBC & Chem 7: 05/22/18 16:42 05/24/18 05:43 Labs: Abnormal Lab Results - Last 24 Hours (Table) 05/23/18 05/23/18 05/24/18 Range/Units 16:19 22:06 05:43 Carbon Dioxide 32 H (22-30) mmol/L BUN 32 H (9-20) mg/dL Glucose 164 H (74-99) mg/dL Troponin I 0.075 H* 0.077 H* (0.000-0.034) ng/mL Assessment and Plan Plan: Assessment and plan #1 systolic congestive heart failure acute on chronic #2 Ischemic cardiomyopathy #3 Hyperlipidemia #4 Family history of premature coronary artery disease #5 Hypertension #6 Chronic persistent atrial fibrillation Plan We will continue the patient on current dose of IV Lasix drip, monitor intake and output closely. Also start the patient on IV amiodarone drip, repeat chest x-ray in the morning. DNP note has been reviewed, I agree with a documented findings and plan of care. Patient was seen and examined.
[2018-05-24 15:15] VITALS: BMI 28.7
[2018-05-24] MEDS: METOPROLOL TARTRATE 25 MG TAB PO SCH ×3 (15:52→20:53)
[2018-05-24] MEDS: FUROSEMIDE 250 MG in SODIUM CHLORIDE 0.9% 225 ML IVP SCH (15:57)
[2018-05-24] MEDS: RIVAROXABAN 15 MG TAB PO SCH (19:09)
[2018-05-25] MEDS: AMIODARONE 450 MG in DEXTROSE 5% IN WATER 250 ML IV SCH ×4 (01:10→09:56)
[2018-05-25] MEDS: ACETAMINOPHEN TAB 325 MG TAB PO PRN ×2 (06:41→20:01)
[2018-05-25 06:43] LABS: HCT 38.8 % (39.0-53.0); HGB 12.5 gm/dL (13.0-17.5); MCH 30.7 pg (25.0-35.0); MCHC 32.3 g/dL (31.0-37.0); Platelet Count 136 k/uL (150-450); RBC 4.08 m/uL (4.30-5.90); WBC 13.9 k/uL (3.8-10.6)
[2018-05-25 07:19] LABS: Calcium 8.6 mg/dL (8.4-10.2); Potassium 3.6 mmol/L (3.5-5.1)
--- NOTE | 2018-05-25 08:30 | XR ---
EXAMINATION TYPE: XR chest 2V DATE OF EXAM: 05/25/2018 COMPARISON: 05/22/2018 HISTORY: 87-year-old male follow-up CHF TECHNIQUE: Frontal and lateral views FINDINGS: Heart mildly enlarged. Dilatation/ectasia of the thoracic aorta is unchanged. Some patchy right mid a nd lower lung opacity has a somewhat strandy appearance suggesting atelectasis. No pleural effusion. IMPRESSION: 1. Mild cardiomegaly without yovanny CHF. 2. Some increasing opacity right mid and lower lung suspected to represent atelectasis.
[2018-05-25] MEDS: ATORVASTATIN 40 MG TAB PO SCH (08:51)
[2018-05-25] MEDS: FINASTERIDE 5 MG TAB PO SCH (08:51)
[2018-05-25] MEDS: SPIRONOLACTONE 25 MG TAB PO SCH ×2 (08:52→20:02)
[2018-05-25] MEDS: predniSONE 20 MG TAB PO SCH ×2 (08:52→20:01)
[2018-05-25] MEDS: METOPROLOL TARTRATE 25 MG TAB PO SCH ×4 (08:52→20:02)
[2018-05-25] MEDS: POTASSIUM CHLORIDE ER 10 MEQ TAB.ER.PRT PO SCH (08:52)
[2018-05-25] MEDS ORDERED: NITROGLYCERIN EXTENDED RELEASE 6.5 MG CAPSULE.ER PO SCH (09:00)
[2018-05-25] MEDS ORDERED: DOCUSATE 100 MG CAP PO PRN (09:10)
[2018-05-25] MEDS ORDERED: MAGNESIUM HYDROXIDE 2,400 MG/10 ML CUP PO PRN (09:11)
[2018-05-25] MEDS: AMIODARONE 200 MG TAB PO SCH ×3 (09:57→20:02)
[2018-05-25] MEDS: DOCUSATE 100 MG CAP PO SCH (11:33)
[2018-05-25] MEDS: FAMOTIDINE 20 MG TAB PO SCH (11:33)
[2018-05-25] MEDS ORDERED: ATORVASTATIN 40 MG TAB PO SCH (12:00)
--- NOTE | 2018-05-25 12:15 | P.PN ---
Subjective Progress Note Date: 05/25/18 Principal diagnosis: CHF, A. aleah This is an 87-year-old gentleman with known history of ischemic cardiomyopathy, hyperlipidemia, peripheral vascular disease, hypertension, who was admitted to the hospital yesterday by Dr. Calderon with congestive heart failure and atrial fibrillation. Patient was seen and examined today, no accurate intake and output performed. Weight shows that it's actually upper kilograms today. Patient is quite short of breath at the time of our examination. At pressure 110/70 with a heart rate in the low 100s, 98% on room air. White blood cell count 11.7, hemoglobin 13, platelet count 123. Sodium 139, potassium 4.4, BUN 38, creatinine 0.9. Magnesium 2.2, troponin 0.081 and BNP level 5270. It appears that the patient had an echocardiogram with Doppler study performed in April of this year which revealed an ejection fraction of 35% with mild to moderate mitral regurg and moderate aortic regurg.\ 05/24/2018 Patient seen and examined this morning, heart rate up in the 140s to 150s range. IV amiodarone was initiated. He did diuresis through the night last night, his weight is down 4 kg today, 32 as his BUN and 1.5 creatinine today. Overall he does state that his breathing is improving, still appears to be short of breath. Peripheral edema is improving significantly. Blood pressure 96/60 with a heart rate of 120, 98% on 2 L of oxygen. Sodium 138, potassium 3.7 , BUN 32, creatinine 1.1. Venous duplex study negative for DVT in the right leg. 05/25/2018 Patient seen and examined this morning, overall states he is feeling significantly better. Blood pressure 98/60, creatinine up to 1.4 today. Repeat chest x-ray does show improvement. We will discontinue the IV Lasix drip and start the patient on IV push Lasix. Once the IV amiodarone drip is completed we will start the patient on oral 200 mg twice a day. Objective - Vital Signs Vital signs: Vital Signs Temp 97.0 F L 05/25/18 08:00 Pulse 101 H 05/25/18 08:00 Resp 20 05/25/18 08:00 BP 91/56 05/25/18 08:00 Pulse Ox 98 05/25/18 08:00 Intake & Output 05/24/18 05/25/18 05/25/18 18:59 06:59 18:59 Intake Total 896.331 499 Output Total 1501 1050 Balance -604.669 -1050 499 Weight 90.9 kg 91.4 kg Intake: Intake, IV Titration 476.331 259 Amount Amiodarone 450 mg In 227.898 259 Dextrose 5% in Water 250 ml @ 1 MG/MIN 34.53 mls/ hr IV .Q7H31M [facility] Rx#: [id number] Dextrose 5% in Water 100 16.6 ml @ 618 mls/hr IV .Q10M ONE with Amiodarone 150 mg Rx#:[id number] Furosemide 250 mg In 231.833 Sodium Chloride 0.9% 225 ml @ 5 MG/HR 5 mls/hr IVP .Q24H [facility] Rx#:[id number] Oral 420 240 Output: Urine 1501 1050 Other: Voiding Method Urinal # Voids 2 - Exam PHYSICAL EXAMINATION: GENERAL: 87-year-old gentleman in no acute distress at the time of our examination HEENT: Head is atraumatic, normocephalic. Pupils equal, round. Sclera anicteric. Conjunctiva are clear. Mucous membranes of the mouth are moist. Neck is supple. There is no elevated jugular venous pressure.] bruit is heard. HEART EXAMINATION: Heart S1 and S2 irregular irregular a systolic ejection murmur is heard at the base CHEST EXAMINATION: Lungs reveal diminished air entry to bilateral bases. ABDOMEN: Soft, nontender. Bowel sounds are heard. No organomegaly noted. EXTREMITIES: 2+ peripheral pulses with trace evidence of peripheral edema and no calf tenderness noted. Amor wrap and dressing in place to the right lower extremity NEUROLOGIC patient is awake, alert and oriented ?-3. . - Labs CBC & Chem 7: 05/25/18 05:54 05/25/18 05:54 Labs: Abnormal Lab Results - Last 24 Hours (Table) 05/25/18 05/25/18 Range/Units 05:54 05:54 WBC 13.9 H (3.8-10.6) k/uL RBC 4.08 L (4.30-5.90) m/uL Hgb 12.5 L (13.0-17.5) gm/dL Hct 38.8 L (39.0-53.0) % RDW 16.0 H (11.5-15.5) % Plt Count 136 L (150-450) k/uL Carbon Dioxide 32 H (22-30) mmol/L BUN 47 H (9-20) mg/dL Creatinine 1.45 H (0.66-1.25) mg/dL Glucose 154 H (74-99) mg/dL Assessment and Plan Plan: Assessment and plan #1 systolic congestive heart failure acute on chronic #2 Ischemic cardiomyopathy #3 Hyperlipidemia #4 Family history of premature coronary artery disease #5 Hypertension #6 Chronic persistent atrial fibrillation Plan We will discontinue the IV Lasix drip and start the patient on IV push Lasix. Once the IV amiodarone drip is finished, we will start the patient on 200 mg by mouth twice a day check lytes BUN and creatinine in the morning. DNP note has been reviewed, I agree with a documented findings and plan of care. Patient was seen and examined.
--- NOTE | 2018-05-25 14:32 | P.PN ---
Subjective Progress Note Date: 05/25/18 87 years old female patient of Dr. Calderon and Dr. Jay past medical history of hypertension, hyperlipidemia pulmonary embolism in 1984, history of recently diagnosed with ITP, history of colon cancer, mitral valve prolapse, BPH presents in with lower extremity swelling and uncontrolled heartrate from Dr. Calderon's office. Patient was just admitted in [facility] 2 weeks ago for similar presentation and was discharged on improvement. Echocardiogram done in the hospital suggest EF of 30-35% with hypokinesis of inferior apical and lateral wall. Vitals on ER suggested heart rate of 108, blood pressure 116/68 saturating 98% on 2 L. Labs are suggestive of leukocytosis 11.7, platelet 123, BUN/creatinine 38, creatinine 0.9 one set of troponin with slightly evaluation 0.081, BNP 5270, albumin 3.2 urinalysis was clear. Patient was admitted for acute systolic heart failure and management of lower extremity swelling. Cardiology has already seen the patient started on Lasix 40 IV every 8. Patient was on Cardizem drip which was discontinued midnight mentioned that patient is very weak and is unable to use his walker. Will have physical therapy to evaluate the patient 05/24: Patient has been started on amiodarone drip for blood pressure is on the low side. We'll plan to discontinue lisinopril. Lasix drip is also in place which will be decreased to 5 mg per hour. Patient has had improvement of his lower extremity edema. Ultrasound was negative for DVT. We'll plan to add in PT and OT once he is stable and can participate. 05/25: Heart rate through the night was still elevated up to 120s and improved this morning. Blood pressure remains on the lower side. Pulse ox 96% on 2 L nasal cannula. White count is 13.9, hemoglobin 12.5, BUN 47 creatinine 1.45. Repeat chest x-ray shows mild cardiomegaly without yovanny heart failure. Some increasing obesity right mid and lower lung suspected to represent atelectasis. Incentive spirometry added. Patient is complaining of constipation for which Colace and milk of magnesia added. Patient is increased redness to the right lower extremity wraps or ole hose with elevation to bilat lower legs. He is currently on IV Lasix 40 mg every 12 hours, amiodarone changed orally 200 mg 3 times daily. Patient states that he gets tired easily with walking. Pulse ox is 97% on room air. Objective - Vital Signs Vital signs: Vital Signs Temp 97.8 F 05/25/18 04:00 Pulse 75 05/25/18 04:00 Resp 16 05/25/18 04:00 BP 98/67 05/25/18 04:00 Pulse Ox 96 05/25/18 04:00 Intake & Output 05/24/18 05/25/18 05/25/18 18:59 06:59 18:59 Intake Total 896.331 240 Output Total 1501 1050 Balance -604.669 -1050 240 Weight 90.9 kg 91.4 kg Intake: Intake, IV Titration 476.331 Amount Amiodarone 450 mg In 227.898 Dextrose 5% in Water 250 ml @ 1 MG/MIN 34.53 mls/ hr IV .Q7H31M [facility] Rx#: [id number] Dextrose 5% in Water 100 16.6 ml @ 618 mls/hr IV .Q10M ONE with Amiodarone 150 mg Rx#:[id number] Furosemide 250 mg In 231.833 Sodium Chloride 0.9% 225 ml @ 5 MG/HR 5 mls/hr IVP .Q24H [facility] Rx#:[id number] Oral 420 240 Output: Urine 1501 1050 Other: Voiding Method Urinal # Voids 2 - Exam - Constitutional General appearance: cooperative, no acute distress, obese - EENT Eyes: anicteric sclerae, PERRLA, normal appearance ENT: hearing grossly normal - Neck Neck: no lymphadenopathy, normal ROM, no other, no rigidity, no stridor, no thyromegaly - Respiratory Respiratory: bilateral: CTA, negative: diminished, dullness, rales, rhonchi - Cardiovascular Rhythm: Irregularly irregular Heart sounds: normal: S1, S2 Abnormal Heart Sounds: Positive for 2+ systolic murmur, no diastolic murmur, no rub, no S3 Gallop, no S4 Gallop, no click, bilateral 3+ lower extremity edema - Gastrointestinal General gastrointestinal: normal bowel sounds, soft - Integumentary Integumentary: no rash - Neurologic Neurologic: CNII-XII intact - Musculoskeletal Musculoskeletal: Generalized weakness strength equal bilaterally - Psychiatric Psychiatric: A&O x's 3, appropriate affect - Labs CBC & Chem 7: 05/25/18 05:54 05/25/18 05:54 Labs: Abnormal Lab Results - Last 24 Hours (Table) 05/25/18 05/25/18 Range/Units 05:54 05:54 WBC 13.9 H (3.8-10.6) k/uL RBC 4.08 L (4.30-5.90) m/uL Hgb 12.5 L (13.0-17.5) gm/dL Hct 38.8 L (39.0-53.0) % RDW 16.0 H (11.5-15.5) % Plt Count 136 L (150-450) k/uL Carbon Dioxide 32 H (22-30) mmol/L BUN 47 H (9-20) mg/dL Creatinine 1.45 H (0.66-1.25) mg/dL Glucose 154 H (74-99) mg/dL Assessment and Plan Plan: #1 atrial fibrillation with RVR. Continue metoprolol 25 mg 4 times daily, amiodarone drip has been discontinued, oral amiodarone 200 mg 3 times daily, continue Xarelto. Cardiology consult appreciated. #2 acute systolic heart failure with ejection fraction last reported to be 30-35 %. Now on IV Lasix 40 mg twice daily. Continue Aldactone 25 mg twice a day. Continue atorvastatin. Lisinopril discontinued due to hypotension. #3 ITP continue to monitor platelets. Continue prednisone at 40 mg twice a day as recommended by Dr. Javier. Bone marrow biopsy done recently suggestive of ITP no cancer cells seen as per patient. #4 BPH continue finasteride 5 mg by mouth daily #5 history of pulmonary embolism in 1984 denies any recent blood clots. #6 bilateral lower extremity swelling right worse than left with overlying swelling. Ultrasound Doppler lower extremity on the right is negative for DVT. #7 history of colon cancer status post bowel resection in remission. #8 DVT prophylaxis on xarelto #9 GI prophylaxis with Pepcid 20 mg daily #10 code status full code Discharge plan: Home with homecare. PT and OT evaluations. Impression and plan of care have been directed as dictated by the signing physician. Mayela Lenz nurse practitioner acting as scribe for signing physician.
[2018-05-25] MEDS: RIVAROXABAN 15 MG TAB PO SCH (16:03)
[2018-05-25] MEDS: FUROSEMIDE 10 MG/ML 4 ML VIAL IV SCH (20:02)
[2018-05-26] MEDS: ACETAMINOPHEN TAB 325 MG TAB PO PRN (04:33)
[2018-05-26 06:36] LABS: Calcium 8.6 mg/dL (8.4-10.2); Potassium 4.2 mmol/L (3.5-5.1)
[2018-05-26] MEDS: FAMOTIDINE 20 MG TAB PO SCH (08:18)
[2018-05-26] MEDS: ATORVASTATIN 40 MG TAB PO SCH (08:18)
[2018-05-26] MEDS: SPIRONOLACTONE 25 MG TAB PO SCH ×2 (08:18→20:17)
[2018-05-26] MEDS: METOPROLOL TARTRATE 25 MG TAB PO SCH ×4 (08:18→20:17)
[2018-05-26] MEDS: DOCUSATE 100 MG CAP PO SCH (08:18)
[2018-05-26] MEDS: FINASTERIDE 5 MG TAB PO SCH (08:18)
[2018-05-26] MEDS: FUROSEMIDE 10 MG/ML 4 ML VIAL IV SCH (08:18)
[2018-05-26] MEDS: AMIODARONE 200 MG TAB PO SCH ×3 (08:18→20:17)
[2018-05-26] MEDS: POTASSIUM CHLORIDE ER 10 MEQ TAB.ER.PRT PO SCH (08:19)
[2018-05-26] MEDS: predniSONE 20 MG TAB PO SCH ×2 (08:19→20:17)
--- NOTE | 2018-05-26 09:28 | P.PN ---
Subjective Progress Note Date: 05/26/18 Principal diagnosis: HF with exacerbation Patient continued to be hemodynamically stable but still experiencing shortness of breath with minimal activities and was short of breath by going to the bathroom. Patient stated that he is feeling better overall since admission but still weak and lethargic and nursing staff reported tachycardia with moving around his bed. Patient is denying chest pain nausea vomiting abdominal pain or dizziness Objective - Vital Signs Vital signs: Vital Signs Temp 96.9 F L 05/26/18 08:00 Pulse 99 05/26/18 08:00 Resp 18 05/26/18 08:00 BP 133/85 05/26/18 08:00 Pulse Ox 93 L 05/26/18 08:00 Intake & Output 05/25/18 05/26/18 05/26/18 18:59 06:59 18:59 Intake Total 1039 240 Output Total 200 Balance 1039 40 Weight 91.8 kg Intake: Intake, IV Titration 259 Amount Amiodarone 450 mg In 259 Dextrose 5% in Water 250 ml @ 1 MG/MIN 34.53 mls/ hr IV .Q7H31M [facility] Rx#: [id number] Oral 780 240 Output: Urine 200 Other: Voiding Method Urinal Toilet Urinal # Voids 2 0 - Exam Gen.: in stated age, no acute distress Heart: Normal S1-S2 Lungs: Diminished bilaterally Abdomen: Soft, no tenderness, positive bowel sounds in all 4 quadrant no guarding or rebound Skin: No new rash Psych: Alert and oriented 3 Neuro: No focal deficit Lower extremity improved edema according to the patient - Labs CBC & Chem 7: 05/25/18 05:54 05/26/18 06:11 Labs: Abnormal Lab Results - Last 24 Hours (Table) 05/26/18 Range/Units 06:11 Sodium 135 L (137-145) mmol/L Carbon Dioxide 31 H (22-30) mmol/L BUN 60 H (9-20) mg/dL Creatinine 1.70 H (0.66-1.25) mg/dL Glucose 161 H (74-99) mg/dL Assessment and Plan Plan: 1. Acute systolic heart failure exacerbation. 2. Ischemic cardiomyopathy area 3. Atrial fibrillation with recent rapid ventricular response. 4. ITP on daily prednisone. 5. Benign prostatic hypertrophy. 6. History of colon cancer status post resection. 7. Severe debility and deconditioning. 8. Acute kidney injury likely secondary to diuretics. I have discussed the plan with the patient and nursing staff at the bedside when I would like to continue cardioprotective medication, consult physical and neck patient will therapy for further evaluation, decrease Lasix dose and monitor kidney function closely, follow-up with cardiology recommendation regarding discharge planning and consider switching to oral Lasix in preparation for discharge. Will follow-up with hematology oncology regarding prednisone dose which was reduced recently to 40 mg daily and monitor platelets closely during this hospital stay. Plan discussed with patient who is agreeable to the above and hoping to go home in the next few days
[2018-05-26] MEDS: RIVAROXABAN 15 MG TAB PO SCH (17:15)
[2018-05-27] MEDS: SPIRONOLACTONE 25 MG TAB PO SCH ×2 (08:38→21:14)
[2018-05-27] MEDS: METOPROLOL TARTRATE 25 MG TAB PO SCH ×4 (08:38→21:14)
[2018-05-27] MEDS: predniSONE 20 MG TAB PO SCH ×2 (08:39→21:14)
[2018-05-27] MEDS: AMIODARONE 200 MG TAB PO SCH ×3 (08:39→21:14)
[2018-05-27] MEDS: ATORVASTATIN 40 MG TAB PO SCH (08:39)
[2018-05-27] MEDS: FUROSEMIDE 40 MG TAB PO SCH (08:39)
[2018-05-27] MEDS: POTASSIUM CHLORIDE ER 10 MEQ TAB.ER.PRT PO SCH (08:39)
[2018-05-27] MEDS: DOCUSATE 100 MG CAP PO SCH (08:39)
[2018-05-27] MEDS: FINASTERIDE 5 MG TAB PO SCH (08:39)
[2018-05-27] MEDS: FAMOTIDINE 20 MG TAB PO SCH (08:39)
[2018-05-27 09:40] LABS: Calcium 8.7 mg/dL (8.4-10.2); Potassium 4.7 mmol/L (3.5-5.1)
[2018-05-27] MEDS: RIVAROXABAN 15 MG TAB PO SCH (17:12)
--- NOTE | 2018-05-27 18:52 | P.PN ---
Subjective Progress Note Date: 05/27/18 Principal diagnosis: HF with exacerbation Patient continued to be hemodynamically stable but still experiencing shortness of breath with minimal activities and was short of breath by going to the bathroom. Patient was ambulating this morning in the room and nursing staff reported improvement in the last 24 hours and his functional status. Patient is sleeping flat in bed using only one pillow. Patient is denying chest pain nausea vomiting abdominal pain or dizziness Objective - Vital Signs Vital signs: Vital Signs Temp 97.4 F L 05/27/18 15:03 Pulse 87 05/27/18 16:00 Resp 18 05/27/18 16:00 BP 123/52 05/27/18 15:03 Pulse Ox 96 05/27/18 15:03 Intake & Output 05/26/18 05/27/18 05/27/18 18:59 06:59 18:59 Intake Total 702 240 Output Total 400 500 600 Balance 302 500 -360 Weight 92 kg 92 kg Intake: Oral 702 240 Output: Urine 400 500 600 Other: Voiding Method Toilet Urinal Urinal Urinal Diaper # Voids 2 # Bowel Movements 1 - Exam Gen.: in stated age, no acute distress Heart: Normal S1-S2 Lungs: Diminished bilaterally Abdomen: Soft, no tenderness, positive bowel sounds in all 4 quadrant no guarding or rebound Skin: No new rash Psych: Alert and oriented 3 Neuro: No focal deficit Lower extremity improved edema according to the patient - Labs CBC & Chem 7: 05/25/18 05:54 05/27/18 09:10 Labs: Abnormal Lab Results - Last 24 Hours (Table) 05/27/18 Range/Units 09:10 Sodium 133 L (137-145) mmol/L Chloride 97 L (98-107) mmol/L BUN 54 H (9-20) mg/dL Creatinine 1.40 H (0.66-1.25) mg/dL Glucose 282 H (74-99) mg/dL Assessment and Plan Plan: 1. Acute systolic heart failure exacerbation. 2. Ischemic cardiomyopathy area 3. Atrial fibrillation with recent rapid ventricular response. 4. ITP on daily prednisone. 5. Benign prostatic hypertrophy. 6. History of colon cancer status post resection. 7. Severe debility and deconditioning. 8. Acute kidney injury likely secondary to diuretics. Patient was switched to oral diuretics and currently tolerating well I would like to continue monitoring his vital signs closely repeat blood work in the morning avoid nephrotoxic medication and have physical nutritional therapy evaluated the patient in the morning regarding discharge planning patient is agreeable to the current treatment plan and we will continue current dose of steroids which need to be tapered down slowly by hematology on an outpatient basis
[2018-05-28 06:58] LABS: Glucose,Whole Blood 160 mg/dL (75-99)
[2018-05-28 08:22] LABS: Calcium 8.7 mg/dL (8.4-10.2); Potassium 4.9 mmol/L (3.5-5.1)
--- NOTE | 2018-05-28 08:33 | PN ---
PROGRESS NOTE This patient has a history of cardiomyopathy and patient was admitted with biventricular failure. Patient has been diuresed with IV Lasix. He is feeling better. He is not in any respiratory distress. Lying comfortably in the bed without any orthopnea or PND but he does feel weak and tired. The patient is afebrile blood pressure is 133/85 per minute. The oxygen saturation is 95%. The patient's urine output remains fairly good. Heart: First and second heart sounds are normal. The lungs are fairly clear to auscultation and percussion. Patient's creatinine is 1.7. Chest x-ray shows minimal atelectasis. FINAL IMPRESSION: This patient's congestive heart failure has resolved. The patient has possible some evidence of cellulitis in the leg. The swelling in the legs is improved. Patient is changed to p.o. Lasix. We will have physical therapy to see the patient and increase his activity. Patient may need to go to the rehab unit. MMNOVA / IJN: [id number] /
[2018-05-28] MEDS: AMIODARONE 200 MG TAB PO SCH ×3 (08:50→21:04)
[2018-05-28] MEDS: FINASTERIDE 5 MG TAB PO SCH (08:50)
[2018-05-28] MEDS: predniSONE 20 MG TAB PO SCH ×2 (08:50→20:47)
[2018-05-28] MEDS: ATORVASTATIN 40 MG TAB PO SCH (08:50)
[2018-05-28] MEDS: DOCUSATE 100 MG CAP PO SCH (08:50)
[2018-05-28] MEDS: FAMOTIDINE 20 MG TAB PO SCH (08:50)
[2018-05-28] MEDS: METOPROLOL TARTRATE 25 MG TAB PO SCH ×4 (08:50→21:04)
[2018-05-28] MEDS: POTASSIUM CHLORIDE ER 10 MEQ TAB.ER.PRT PO SCH (08:50)
[2018-05-28] MEDS: FUROSEMIDE 40 MG TAB PO SCH (08:50)
[2018-05-28] MEDS: SPIRONOLACTONE 25 MG TAB PO SCH ×2 (08:50→20:48)
--- NOTE | 2018-05-28 15:04 | XR ---
EXAMINATION TYPE: XR chest 2V DATE OF EXAM: 05/28/2018 COMPARISON: May 25, 2018 HISTORY: Shortness of breath TECHNIQUE: Frontal and lateral views of the chest are obtained. FINDINGS: Scattered senescent parenchymal changes noted. Hyperinflation compatible with COPD. No evidence for infiltrate. No evidence for atelectasis. Heart size is stable. Mediastinal structures are stable and grossly unremarkable. No evidence for hilar prominence. Degenerative changes dorsal spine. IMPRESSION: 1. No evidence for acute pulmonary disease.
[2018-05-28] MEDS: RIVAROXABAN 15 MG TAB PO SCH (16:57)
[2018-05-28] MEDS: ACETAMINOPHEN TAB 325 MG TAB PO PRN (20:46)
[2018-05-29 05:55] VITALS: BP 157/67; PULSE 66; RESP 17; TEMP 98
[2018-05-29] MEDS: DOCUSATE 100 MG CAP PO SCH (07:10)
[2018-05-29] MEDS: AMIODARONE 200 MG TAB PO SCH (07:10)
[2018-05-29] MEDS: ATORVASTATIN 40 MG TAB PO SCH (07:10)
[2018-05-29] MEDS: FINASTERIDE 5 MG TAB PO SCH (07:10)
[2018-05-29] MEDS: FAMOTIDINE 20 MG TAB PO SCH (07:10)
[2018-05-29] MEDS: METOPROLOL TARTRATE 25 MG TAB PO SCH ×2 (07:11→13:26)
[2018-05-29] MEDS: FUROSEMIDE 40 MG TAB PO SCH (07:11)
[2018-05-29] MEDS: predniSONE 20 MG TAB PO SCH (07:11)
[2018-05-29] MEDS: POTASSIUM CHLORIDE ER 10 MEQ TAB.ER.PRT PO SCH (07:11)
[2018-05-29] MEDS: SPIRONOLACTONE 25 MG TAB PO SCH (07:12)
--- NOTE | 2018-05-29 12:58 | P.PN ---
Subjective Progress Note Date: 05/28/18 87 years old female patient of Dr. Calderon and Dr. Jay past medical history of hypertension, hyperlipidemia pulmonary embolism in 1984, history of recently diagnosed with ITP, history of colon cancer, mitral valve prolapse, BPH presents in with lower extremity swelling and uncontrolled heartrate from Dr. Calderon's office. Patient was just admitted in [facility] 2 weeks ago for similar presentation and was discharged on improvement. Echocardiogram done in the hospital suggest EF of 30-35% with hypokinesis of inferior apical and lateral wall. Vitals on ER suggested heart rate of 108, blood pressure 116/68 saturating 98% on 2 L. Labs are suggestive of leukocytosis 11.7, platelet 123, BUN/creatinine 38, creatinine 0.9 one set of troponin with slightly evaluation 0.081, BNP 5270, albumin 3.2 urinalysis was clear. Patient was admitted for acute systolic heart failure and management of lower extremity swelling. Cardiology has already seen the patient started on Lasix 40 IV every 8. Patient was on Cardizem drip which was discontinued midnight mentioned that patient is very weak and is unable to use his walker. Will have physical therapy to evaluate the patient 05/24: Patient has been started on amiodarone drip for blood pressure is on the low side. We'll plan to discontinue lisinopril. Lasix drip is also in place which will be decreased to 5 mg per hour. Patient has had improvement of his lower extremity edema. Ultrasound was negative for DVT. We'll plan to add in PT and OT once he is stable and can participate. 05/25: Heart rate through the night was still elevated up to 120s and improved this morning. Blood pressure remains on the lower side. Pulse ox 96% on 2 L nasal cannula. White count is 13.9, hemoglobin 12.5, BUN 47 creatinine 1.45. Repeat chest x-ray shows mild cardiomegaly without yovanny heart failure. Some increasing obesity right mid and lower lung suspected to represent atelectasis. Incentive spirometry added. Patient is complaining of constipation for which Colace and milk of magnesia added. Patient is increased redness to the right lower extremity wraps or ole hose with elevation to bilat lower legs. He is currently on IV Lasix 40 mg every 12 hours, amiodarone changed orally 200 mg 3 times daily. Patient states that he gets tired easily with walking. Pulse ox is 97% on room air. 05/26: Patient continued to be hemodynamically stable but still experiencing shortness of breath with minimal activities and was short of breath by going to the bathroom. Patient stated that he is feeling better overall since admission but still weak and lethargic and nursing staff reported tachycardia with moving around his bed. Patient is denying chest pain nausea vomiting abdominal pain or dizziness 05/27: Patient continued to be hemodynamically stable but still experiencing shortness of breath with minimal activities and was short of breath by going to the bathroom. Patient was ambulating this morning in the room and nursing staff reported improvement in the last 24 hours and his functional status. Patient is sleeping flat in bed using only one pillow. Patient is denying chest pain nausea vomiting abdominal pain or dizziness 05/28: Patient is known to have a few crackles in the bases today. He seems to be having difficulty moving in bed and we will ask for physical therapy to reassess. Patient is currently planned for discharge home with home care but he may benefit from subacute rehab. He is reaching 1500 on his incentive spirometry. Pulse ox is 95% on room air. Repeat chest x-ray ordered that shows no acute findings. Anticipate discharge tomorrow. Objective - Vital Signs Vital signs: Vital Signs Temp 97.2 F L 05/27/18 12:00 Pulse 87 05/27/18 12:00 Resp 18 05/27/18 12:00 BP 105/78 05/27/18 12:00 Pulse Ox 95 05/27/18 12:00 Intake & Output 05/26/18 05/27/18 05/27/18 18:59 06:59 18:59 Intake Total 702 240 Output Total 400 500 600 Balance 302 -500 -360 Weight 92 kg Intake: Oral 702 240 Output: Urine 400 500 600 Other: Voiding Method Toilet Urinal Urinal Urinal # Voids 2 # Bowel Movements 1 - Exam - Constitutional General appearance: cooperative, no acute distress, obese - EENT Eyes: anicteric sclerae, PERRLA, normal appearance ENT: hearing grossly normal - Neck Neck: no lymphadenopathy, normal ROM, no other, no rigidity, no stridor, no thyromegaly - Respiratory Respiratory: bilateral: CTA, negative: diminished, dullness, rales, rhonchi - Cardiovascular Rhythm: Irregularly irregular Heart sounds: normal: S1, S2 Abnormal Heart Sounds: Positive for 2+ systolic murmur, no diastolic murmur, no rub, no S3 Gallop, no S4 Gallop, no click, bilateral 3+ lower extremity edema - Gastrointestinal General gastrointestinal: normal bowel sounds, soft - Integumentary Integumentary: no rash - Neurologic Neurologic: CNII-XII intact - Musculoskeletal Musculoskeletal: Generalized weakness strength equal bilaterally - Psychiatric Psychiatric: A&O x's 3, appropriate affect - Labs CBC & Chem 7: 05/25/18 05:54 05/28/18 07:26 Labs: Abnormal Lab Results - Last 24 Hours (Table) 05/27/18 Range/Units 09:10 Sodium 133 L (137-145) mmol/L Chloride 97 L (98-107) mmol/L BUN 54 H (9-20) mg/dL Creatinine 1.40 H (0.66-1.25) mg/dL Glucose 282 H (74-99) mg/dL Assessment and Plan Plan: #1 atrial fibrillation with RVR with chronic atrial fibrillation. Continue metoprolol 25 mg 4 times daily, amiodarone drip has been discontinued, oral amiodarone 200 mg 3 times daily, continue Xarelto. Cardiology consult appreciated. #2 acute systolic heart failure with ejection fraction last reported to be 30-35 %. Now on PO Lasix 40 mg daily. Continue Aldactone 25 mg twice a day. Continue atorvastatin. Lisinopril discontinued due to hypotension. #3 ITP continue to monitor platelets. Continue prednisone at 40 mg twice a day as recommended by Dr. Javier. Bone marrow biopsy done recently suggestive of ITP no cancer cells seen as per patient. #4 BPH continue finasteride 5 mg by mouth daily #5 history of pulmonary embolism in 1984 denies any recent blood clots. #6 bilateral lower extremity swelling right worse than left with overlying swelling. Ultrasound Doppler lower extremity on the right is negative for DVT. #7 history of colon cancer status post bowel resection in remission. #8 DVT prophylaxis on xarelto #9 GI prophylaxis with Pepcid 20 mg daily #10 code status full code Discharge plan: Home with homecare. PT and OT evaluations. Possible subacute rehab. Impression and plan of care have been directed as dictated by the signing physician. Mayela Lenz nurse practitioner acting as scribe for signing physician.
--- NOTE | 2018-05-29 13:09 | P.DS ---
Providers Date of admission: 05/22/18 19:00 Expected date of discharge: 05/29/18 Attending physician: Gloria Hess MD Consults: 05/22/18 18:28 Consult Physician Stat Consulting Provider: Bita Calderon Consult Reason/Comments: Direct Admit under [facility] Do you want consulting provider notified?: Yes Primary care physician: Enedelia Jay Hospital Course: 87 years old female patient of Dr. Calderon and Dr. Jay past medical history of hypertension, hyperlipidemia pulmonary embolism in 1984, history of recently diagnosed with ITP, history of colon cancer, mitral valve prolapse, BPH presents in with lower extremity swelling and uncontrolled heartrate from Dr. Calderon's office. Patient was just admitted in [facility] 2 weeks ago for similar presentation and was discharged on improvement. Echocardiogram done in the hospital suggest EF of 30-35% with hypokinesis of inferior apical and lateral wall. Vitals on ER suggested heart rate of 108, blood pressure 116/68 saturating 98% on 2 L. Labs are suggestive of leukocytosis 11.7, platelet 123, BUN/creatinine 38, creatinine 0.9 one set of troponin with slightly evaluation 0.081, BNP 5270, albumin 3.2 urinalysis was clear. Patient was admitted for acute systolic heart failure and management of lower extremity swelling. Cardiology has already seen the patient started on Lasix 40 IV every 8. Patient was on Cardizem drip which was discontinued midnight mentioned that patient is very weak and is unable to use his walker. Will have physical therapy to evaluate the patient 05/24: Patient has been started on amiodarone drip for blood pressure is on the low side. We'll plan to discontinue lisinopril. Lasix drip is also in place which will be decreased to 5 mg per hour. Patient has had improvement of his lower extremity edema. Ultrasound was negative for DVT. We'll plan to add in PT and OT once he is stable and can participate. 05/25: Heart rate through the night was still elevated up to 120s and improved this morning. Blood pressure remains on the lower side. Pulse ox 96% on 2 L nasal cannula. White count is 13.9, hemoglobin 12.5, BUN 47 creatinine 1.45. Repeat chest x-ray shows mild cardiomegaly without yovanny heart failure. Some increasing obesity right mid and lower lung suspected to represent atelectasis. Incentive spirometry added. Patient is complaining of constipation for which Colace and milk of magnesia added. Patient is increased redness to the right lower extremity wraps or ole hose with elevation to bilat lower legs. He is currently on IV Lasix 40 mg every 12 hours, amiodarone changed orally 200 mg 3 times daily. Patient states that he gets tired easily with walking. Pulse ox is 97% on room air. 05/26: Patient continued to be hemodynamically stable but still experiencing shortness of breath with minimal activities and was short of breath by going to the bathroom. Patient stated that he is feeling better overall since admission but still weak and lethargic and nursing staff reported tachycardia with moving around his bed. Patient is denying chest pain nausea vomiting abdominal pain or dizziness 05/27: Patient continued to be hemodynamically stable but still experiencing shortness of breath with minimal activities and was short of breath by going to the bathroom. Patient was ambulating this morning in the room and nursing staff reported improvement in the last 24 hours and his functional status. Patient is sleeping flat in bed using only one pillow. Patient is denying chest pain nausea vomiting abdominal pain or dizziness 05/28: Patient is known to have a few crackles in the bases today. He seems to be having difficulty moving in bed and we will ask for physical therapy to reassess. Patient is currently planned for discharge home with home care but he may benefit from subacute rehab. He is reaching 1500 on his incentive spirometry. Pulse ox is 95% on room air. Repeat chest x-ray ordered that shows no acute findings. Anticipate discharge tomorrow. 05/29: Patient is complaining of lightheadedness when he stands. We are adjusting his amiodarone to only twice daily and patient instructed to get up slowly. Patient will have follow-up with Dr. Jay within the next week. Patient did not meet criteria for subacute rehab and will be discharged home today in stable condition. Discharge diagnoses: #1 atrial fibrillation with RVR with chronic atrial fibrillation. #2 acute systolic heart failure with ejection fraction last reported to be 30-35 %. #3 ITP #4 BPH #5 history of pulmonary embolism in 1984 #6 bilateral lower extremity swelling right worse than left with overlying swelling. Ultrasound Doppler lower extremity on the right is negative for DVT. #7 history of colon cancer status post bowel resection in remission. Discharge plan: Home with [facility]. Impression and plan of care have been directed as dictated by the signing physician. Mayela Lenz nurse practitioner acting as scribe for signing physician. Patient Condition at Discharge: Good Plan - Discharge Summary New Discharge Prescriptions: New Acetaminophen Tab [Tylenol] 650 mg PO Q6HR PRN tab PRN Reason: Mild Pain Or Fever > 100.5 Amiodarone [Cordarone] 200 mg PO BID #60 tab Docusate [Colace] 100 mg PO DAILY cap Famotidine [Pepcid] 20 mg PO DAILY tab Furosemide [Lasix] 40 mg PO DAILY tab Magnesium Hydroxide [Milk of Magnesia Concentrate] 2,400 mg PO BID PRN ml PRN Reason: Constipation Metoprolol Tartrate [Lopressor] 25 mg PO QID tab Spironolactone [Aldactone] 25 mg PO BID tab Continue Potassium Chloride [K-Tab ER] 10 meq PO DAILY Folic Acid 1 mg PO DAILY Finasteride [Proscar] 5 mg PO DAILY Cholecalciferol [Vitamin D3] 1,000 unit PO DAILY Atorvastatin Calcium [Lipitor] 40 mg PO DAILY predniSONE 40 mg PO BID Rivaroxaban [Xarelto] 15 mg PO AC-SUPPER Discontinued Furosemide [Lasix] 20 mg PO HS Quinapril HCl [Accupril] 40 mg PO QAM Nitroglycerin [Nitro-Time] 6.5 mg PO QAM Metoprolol Succinate [Toprol XL] 50 mg PO HS Discharge Medication List Cholecalciferol [Vitamin D3] 1,000 unit PO DAILY 03/28/14 [History] Finasteride [Proscar] 5 mg PO DAILY 03/28/14 [History] Folic Acid 1 mg PO DAILY 03/28/14 [History] Potassium Chloride [K-Tab ER] 10 meq PO DAILY 03/28/14 [History] Atorvastatin Calcium [Lipitor] 40 mg PO DAILY 03/08/18 [History] predniSONE 40 mg PO BID 04/02/18 [History] Rivaroxaban [Xarelto] 15 mg PO AC-SUPPER 05/22/18 [History] Acetaminophen Tab [Tylenol] 650 mg PO Q6HR PRN tab 05/29/18 [Rx] Amiodarone [Cordarone] 200 mg PO BID #60 tab 05/29/18 [Rx] Docusate [Colace] 100 mg PO DAILY cap 05/29/18 [Rx] Famotidine [Pepcid] 20 mg PO DAILY tab 05/29/18 [Rx] Furosemide [Lasix] 40 mg PO DAILY tab 05/29/18 [Rx] Magnesium Hydroxide [Milk of Magnesia Concentrate] 2,400 mg PO BID PRN ml 05/29 [Rx] Metoprolol Tartrate [Lopressor] 25 mg PO QID tab 05/29/18 [Rx] Spironolactone [Aldactone] 25 mg PO BID tab 05/29/18 [Rx] Follow up Appointment(s)/Referral(s): Bita Calderon MD [STAFF PHYSICIAN] - 1 Week (cardiology assoc will call patient to schedule appt.) Enedelia Jay MD [Primary Care Provider] - 06/01/18 11:15 am [facility], [NON-STAFF] - Patient Instructions/Handouts: Amiodarone (By mouth), Heart Failure (DC), A- fib (Atrial Fibrillation) (DC), Heart Healthy Diet (DC) Discharge Disposition: TRANSFER TO SNF/ECF
== END 2018-05-29 14:45 | disposition home health service (06) | DRG 292 ==
LOC: EC 14:45 → 6SEL 19:00 → 5MS5E 05-27 14:11
PROVIDERS: ADMIT Internal Medicine; ATTEND Internal Medicine
DX: I11.0 Hypertensive heart disease with heart failure (principal); D69.3 Immune thrombocytopenic purpura; J98.11 Atelectasis; I48.1 Persistent atrial fibrillation; N17.9 Acute kidney failure, unspecified; I50.23 Acute on chronic systolic (congestive) heart failure; E78.5 Hyperlipidemia, unspecified; F32.9 Major depressive disorder, single episode, unspecified; I08.0 Rheumatic disorders of both mitral and aortic valves; I25.10 Atherosclerotic heart disease of native coronary artery without angina pectoris; I25.2 Old myocardial infarction; I25.5 Ischemic cardiomyopathy; I34.1 Nonrheumatic mitral (valve) prolapse; I48.2 Chronic atrial fibrillation; I50.82 Biventricular heart failure; I73.9 Peripheral vascular disease, unspecified; K59.00 Constipation, unspecified; N40.0 Benign prostatic hyperplasia without lower urinary tract symptoms; Z79.01 Long term (current) use of anticoagulants; Z79.899 Other long term (current) drug therapy; Z80.7 Family history of other malignant neoplasms of lymphoid, hematopoietic and related tissues; Z82.49 Family history of ischemic heart disease and other diseases of the circulatory system; Z83.3 Family history of diabetes mellitus; Z85.038 Personal history of other malignant neoplasm of large intestine; Z86.711 Personal history of pulmonary embolism; Z87.442 Personal history of urinary calculi; Z90.49 Acquired absence of other specified parts of digestive tract; Z88.0 Allergy status to penicillin; Z88.8 Allergy status to other drugs, medicaments and biological substances; T50.2X5A Adverse effect of carbonic-anhydrase inhibitors, benzothiadiazides and other diuretics, initial encounter; Z79.52 Long term (current) use of systemic steroids; Z96.653 Presence of artificial knee joint, bilateral; Z89.022 Acquired absence of left finger(s); R53.81 Other malaise
CPT/HCPCS: 36415; 71046; 80048; 80053; 81001; 82550; 82553; 83735; 83880; 84484; 85025; 85027; 85610; 85730; 96365; 96366; 99285

== ENCOUNTER 2018-05-30 19:39 | Emergency (ER) | payer MEDICARE, BC ==
[2018-05-30] MEDS ORDERED: SODIUM CHLORIDE 0.9% 500 ML IV STA (20:36)
--- NOTE | 2018-05-30 20:52 | ED ---
Fall HPI - General Source: patient, family, EMS, RN notes reviewed, old records reviewed Mode of arrival: EMS - History of Present Illness MD Complaint: fall <Ruben Paulino - Last Filed: 05/30/18 20:58> <Mandy Benedict - Last Filed: 05/31/18 00:00> - General Chief Complaint: Fall Stated Complaint: fall Time Seen by Provider: 05/30/18 19:40 - History of Present Illness Initial Comments: This 79-year-old male who was just discharged yesterday and this hospital where he was treated for atrial fibrillation with a rapid ventricular response who is back today because he fell out of bed. Is brought in by EMS. He was acting a little bit woozy afterwards. He purely did complain some right-sided neck pain and right shoulder pain and hip pain. He also has some bruising to his abdomen on the right side. No other complaints he is on blood thinners. He denies any fevers chills nausea vomiting sweats. He is hard of hearing. (Ruben Paulino) - Related Data Home Medications Medication Instructions Recorded Confirmed Cholecalciferol [Vitamin D3] 1,000 unit PO DAILY 03/28/14 05/22/18 Finasteride [Proscar] 5 mg PO DAILY 03/28/14 05/22/18 Folic Acid 1 mg PO DAILY 03/28/14 05/22/18 Potassium Chloride [K-Tab ER] 10 meq PO DAILY 03/28/14 05/22/18 Atorvastatin Calcium [Lipitor] 40 mg PO DAILY 03/08/18 05/22/18 predniSONE 40 mg PO BID 04/02/18 05/22/18 Rivaroxaban [Xarelto] 15 mg PO AC-SUPPER 05/22/18 05/22/18 Previous Rx's Medication Instructions Recorded Acetaminophen Tab [Tylenol] 650 mg PO Q6HR PRN tab 05/29/18 Amiodarone [Cordarone] 200 mg PO BID #60 tab 05/29/18 Docusate [Colace] 100 mg PO DAILY cap 05/29/18 Famotidine [Pepcid] 20 mg PO DAILY tab 05/29/18 Famotidine [Pepcid] 20 mg PO DAILY #30 tablet 05/29/18 Furosemide [Lasix] 40 mg PO DAILY #30 tablet 05/29/18 Magnesium Hydroxide [Milk of 2,400 mg PO BID PRN ml 05/29/18 Magnesia Concentrate] Metoprolol Tartrate 25 mg PO QID #120 tab 05/29/18 Spironolactone [Aldactone] 25 mg PO BID #60 tablet 05/29/18 Allergies Allergy/AdvReac Type Severity Reaction Status Date / Time hydroxyzine [From Vistaril] Allergy Confusion Verified 05/22/18 20:34 metoclopramide HCl Allergy Unknown Verified 05/22/18 20:34 [From Reglan] Penicillins Allergy Anaphylaxis Verified 05/22/18 20:34 Review of Systems ROS Other: All systems not noted in ROS Statement are negative. <Ruben Paulino - Last Filed: 05/30/18 20:58> ROS Other: All systems not noted in ROS Statement are negative. <Mandy Benedict - Last Filed: 05/31/18 00:00> ROS Statement: Those systems with pertinent positive or pertinent negative responses have been documented in the HPI. Past Medical History Past Medical History: Coronary Artery Disease (CAD), Cancer, Heart Failure, Hyperlipidemia, Hypertension, Mitral Valve Prolapse (MVP), Prostate Disorder, Pulmonary Embolus (PE) Additional Past Medical History / Comment(s): STATES HAS "LOW PLATELETS" UNSTEADY ON FEET CURRENTLY, HX COLON CA, diverticulitis, KIDNEY STONE History of Any Multi-Drug Resistant Organisms: None Reported Past Surgical History: Bowel Resection, Hernia Repair, Joint Replacement, Orthopedic Surgery Additional Past Surgical History / Comment(s): TOTAL RIGHT KNEE X2, LEFT EAR SX X2, TABITHA ROT.CUFF, KIDNEY STONE SX, LEFT KNEE ARTHROSCOPY, LEFT KNEE REPLACED, LEFT INDEX FINGER AMPUTATED Past Anesthesia/Blood Transfusion Reactions: No Reported Reaction Past Psychological History: Depression Smoking Status: Never smoker Past Alcohol Use History: Rare Past Drug Use History: None Reported - Past Family History Brother(s) Family Medical History: Diabetes Mellitus Sister(s) Family Medical History: Diabetes Mellitus Mother Family Medical History: Cancer Additional Family Medical History / Comment(s): HODGKINS <Ruben Paulino - Last Filed: 05/30/18 20:58> General Exam Limitations: no limitations General appearance: alert, in no apparent distress Head exam: Present: atraumatic, normocephalic, normal inspection Eye exam: Present: normal appearance, PERRL, EOMI. Absent: scleral icterus, conjunctival injection, periorbital swelling ENT exam: Present: normal exam, mucous membranes moist Neck exam: Present: normal inspection, tenderness (Very minimal right lateral neck tenderness no spinous process tenderness. The cervical collar was removed) , full ROM. Absent: meningismus, lymphadenopathy Respiratory exam: Present: normal lung sounds bilaterally. Absent: respiratory distress, wheezes, rales, rhonchi, stridor Cardiovascular Exam: Present: normal rhythm, irregular rhythm. Absent: systolic murmur, diastolic murmur, rubs, gallop, clicks GI/Abdominal exam: Present: soft, tenderness (Right mid to upper quadrant tenderness with some ecchymosis noted over the right abdomen. No guarding rebound masses or bruits), normal bowel sounds. Absent: distended, guarding, rebound, rigid Rectal exam: Present: deferred Extremities exam: Present: normal inspection, tenderness, normal capillary refill, other (Is palpation of the right shoulder no step-off or crepitation tenderness over the right hip no obvious shortening or lateral rotation.). Absent: full ROM, pedal edema, joint swelling, calf tenderness Back exam: Present: normal inspection Neurological exam: Present: alert, oriented X3, CN II-XII intact Psychiatric exam: Present: normal affect, normal mood Skin exam: Present: warm, dry, intact, normal color. Absent: rash <Ruben Paulino - Last Filed: 05/30/18 20:58> <Mandy Benedict - Last Filed: 05/31/18 00:00> - General Exam Comments Initial Comments: This a well-developed well-nourished awake alert oriented [address] Coma Scale of 15 (Ruben Paulino) Course <Ruben Paulino - Last Filed: 05/30/18 20:58> <Mandy Benedict - Last Filed: 05/31/18 00:00> Vital Signs 05/30/18 05/30/18 19:50 22:44 Temperature 97.7 F Pulse Rate 73 102 H Respiratory 20 20 Rate Blood Pressure 117/78 178/88 O2 Sat by Pulse 94 L 97 Oximetry - Reevaluation(s) Reevaluation #1: 05/30/18 20:52 The patient's care is endorsed to Dr. Benedict at our shift change (Ruben Paulino) Medical Decision Making - EKG Data -: EKG Interpreted by Me (Atrial fibrillation rate of 102 QRS duration 96 QT since QTC 36/398 left ex) <Ruben Paulino - Last Filed: 05/30/18 20:58> - Lab Data Result diagrams: 05/30/18 20:40 <Mandy Benedict - Last Filed: 05/31/18 00:00> - Medical Decision Making Patient care was signed out to me by Dr. Paulino, patient was recently admitted for atrial fibrillation with RVR, he was discharged home on Monday and had a fall out of bed today. Per the patient he got up on the wrong side the bed and have his walker. Son states that they have decided to move the bed up against the wall so that the patient only has one direction to get out of bed. At the time of sign out patient's x-ray imaging was pending. X-rays and CT reveal no acute traumatic injury. Patient's expresses concern that she has not had home health care at the house he had, he was discharged on Monday and home healthcare did not come by on Monday. I discussed this with the patient's primary care physician who states that home health care does not always, and the first 24 hours, at this time the patient has underwent a very thorough evaluation and had declined admission to a rehab facility so he doesn't feel there is any indication for admission and the patient will be discharged home with a plan to continue with plan for home health care, physical therapy and occupational therapy at home beginning tomorrow. Patient and were advised that if they do not hear from home healthcare tomorrow by lunchtime they should contact their primary care physician to facilitate this. All questions pertaining to care were answered the best my ability the patient was discharged home in stable condition (Mandy Benedict) - Lab Data Lab Results 05/30/18 Range/Units 20:40 WBC 14.4 H (3.8-10.6) k/uL RBC 4.57 (4.30-5.90) m/uL Hgb 13.9 (13.0-17.5) gm/dL Hct 42.7 (39.0-53.0) % MCV 93.5 (80.0-100.0) fL MCH 30.5 (25.0-35.0) pg MCHC 32.6 (31.0-37.0) g/dL RDW 15.9 H (11.5-15.5) % Plt Count 180 (150-450) k/uL Neutrophils % 82 % Lymphocytes % 13 % Monocytes % 3 % Eosinophils % 1 % Basophils % 1 % Neutrophils # 11.8 H (1.3-7.7) k/uL Lymphocytes # 1.8 (1.0-4.8) k/uL Monocytes # 0.5 (0-1.0) k/uL Eosinophils # 0.2 (0-0.7) k/uL Basophils # 0.1 (0-0.2) k/uL Disposition <Ruben Paulino - Last Filed: 05/30/18 20:58> Is patient prescribed a controlled substance at d/c from ED?: No Time of Disposition: 23:37 <Mandy Benedict - Last Filed: 05/31/18 00:00> Clinical Impression: Fall Disposition: HOME SELF-CARE Instructions: Fall Prevention for Older Adults (ED) Additional Instructions: If you have not heard from the home health care nurse, physical therapist or occupational therapist by lunchtime tomorrow call your primary care office to discuss this with them. Referrals: Enedelia Jay MD [Primary Care Provider] - 1-2 days
[2018-05-30 21:14] LABS: Basophils # (A) 0.1 k/uL (0-0.2); Basophils % (A) 1 %; Eosinophils # (A) 0.2 k/uL (0-0.7); Eosinophils % (A) 1 %; HCT 42.7 % (39.0-53.0); HGB 13.9 gm/dL (13.0-17.5); Lymphocytes # (A) 1.8 k/uL (1.0-4.8); Lymphocytes % (A) 13 %; MCH 30.5 pg (25.0-35.0); MCHC 32.6 g/dL (31.0-37.0); MCV 93.5 fL (80.0-100.0); Mean Platelet Volume 6.8; Monocytes # (A) 0.5 k/uL (0-1.0); Monocytes % (A) 3 %; Neutrophils # (A) 11.8 k/uL (1.3-7.7); Neutrophils % (A) 82 %; Platelet Count 180 k/uL (150-450); RBC 4.57 m/uL (4.30-5.90); RDW 15.9 % (11.5-15.5); WBC 14.4 k/uL (3.8-10.6)
--- NOTE | 2018-05-30 21:15 | CT ---
EXAMINATION TYPE: CT brain karthikeyan lobo DATE OF EXAM: 05/30/2018 COMPARISON: None HISTORY: fall injury headache. Neck pain. CT DLP: 1456.3 mGycm Automated exposure control for dose reduction was used. TECHNIQUE: CT scan of the head and cervical spine are performed without contrast. FINDINGS: There is cerebral cortical atrophy. There is hypodensity in the periventricular white mat ter. There is no mass effect nor midline shift. There is no sign of intracranial hemorrhage. The calv arium is intact. The cervical vertebra have normal alignment. There is disc space narrowing throughout the cervical sp ine. Posterior elements are intact. There is hypertrophic multilevel facet arthropathy. The skull bas e is intact. IMPRESSION: Cerebral atrophy and chronic small vessel ischemia. No acute intracranial abnormality. Mild ventricul omegaly. Spondylotic changes in the cervical spine. No fracture.
--- NOTE | 2018-05-30 21:25 | CT ---
EXAMINATION TYPE: CT abdomen pelvis wo con DATE OF EXAM: 05/30/2018 COMPARISON: None HISTORY: fall injury abdominal pain CT DLP: 916.8 mGycm Automated exposure control for dose reduction was used. TECHNIQUE: Helical acquisition of images was performed from the lung bases through the pelvis. FINDINGS: Heart is enlarged. There is mild scarring and subsegmental atelectasis at the lung bases. There is no pleural effusion or pneumothorax. Liver and spleen appear normal. There is no pancreatic mass. There are numerous calcified gallstones. Bile ducts are not dilated. There is no adrenal mass. Kidneys have normal size. There is no hydronephrosis. There is no retroperi toneal adenopathy. Abdominal aorta is atheromatous. There is no intestinal wall thickening. There are no dilated loops. Bladder distends smoothly. There is left side scrotal hernia that contains fat. I see no intestinal wall thickening. There are a few sigmoid diverticula. There is no evidence of diver ticulitis. There is no free air. There is multilevel spondylotic changes in the lumbar spine. There i s no compression fracture. There is 5% depression superior endplate of T7 that appears old. There is apparent right colectomy. Cardiomegaly. IMPRESSION: MILD LARGE BOWEL DIVERTICULOSIS WITHOUT DIVERTICULITIS. SPONDYLOTIC CHANGES. ATHEROSCLEROTIC VASCULAR DISEASE. MILD SCARRING AND SUBSEGMENTAL ATELECTASIS AT THE LUNG BASES. CHOLELITHIASIS. NO EVIDENCE O F TRAUMATIC INJURY IN THE ABDOMEN AND PELVIS.
--- NOTE | 2018-05-30 21:27 | XR ---
EXAMINATION TYPE: XR Hip RT and AP Pelvis DATE OF EXAM: 05/30/2018 COMPARISON: NONE HISTORY: Fall. Pain. TECHNIQUE: A single AP view of the pelvis is obtained. Two views of the right hip are obtained. FINDINGS: The pelvic ring is intact. Proximal right femur is intact. I see no evidence of hip dysplas ia. I see no fracture. Sacroiliac joints are intact. IMPRESSION: No acute abnormality of the right hip and pelvis.
--- NOTE | 2018-05-30 21:28 | XR ---
EXAMINATION TYPE: XR shoulder complete RT DATE OF EXAM: 05/30/2018 COMPARISON: NONE HISTORY: Shoulder pain TECHNIQUE: 3 views FINDINGS: There is narrowing of the glenohumeral joint space with spurring. There is calcification at the greater tuberosity of the humerus. There is narrowing of the subacromial joint space. IMPRESSION: Osteoarthritis with significant subacromial impingement. Calcific tendinitis. No acute arvin ny abnormality.
[2018-05-30] MEDS ORDERED: METOPROLOL TARTRATE 25 MG TAB PO SCH (23:30)
[2018-05-31 00:22] VITALS: BP 127/81; PULSE 83; RESP 18; TEMP 98.7
[2018-05-31] MEDS ORDERED: SPIRONOLACTONE 25 MG TAB PO SCH (09:00)
[2018-05-31] MEDS ORDERED: AMIODARONE 200 MG TAB PO SCH (09:00)
[2018-05-31] MEDS ORDERED: FINASTERIDE 5 MG TAB PO SCH (09:00)
[2018-05-31] MEDS ORDERED: FUROSEMIDE 40 MG TAB PO SCH (09:00)
[2018-05-31] MEDS ORDERED: RIVAROXABAN 15 MG TAB PO SCH (17:30)
== END 2018-05-31 00:22 | disposition home or self-care (01) ==
LOC: EC 19:39
DX: S30.1XXA Contusion of abdominal wall, initial encounter (principal); M54.2 Cervicalgia; M25.511 Pain in right shoulder; M25.551 Pain in right hip; I25.10 Atherosclerotic heart disease of native coronary artery without angina pectoris; I11.0 Hypertensive heart disease with heart failure; I50.9 Heart failure, unspecified; E78.5 Hyperlipidemia, unspecified; I10 Essential (primary) hypertension; N42.9 Disorder of prostate, unspecified; Z86.718 Personal history of other venous thrombosis and embolism; F32.9 Major depressive disorder, single episode, unspecified; Z85.038 Personal history of other malignant neoplasm of large intestine; Z96.652 Presence of left artificial knee joint; Z79.01 Long term (current) use of anticoagulants; Z79.52 Long term (current) use of systemic steroids; Z79.899 Other long term (current) drug therapy; Z88.0 Allergy status to penicillin; Z88.8 Allergy status to other drugs, medicaments and biological substances; W06.XXXA Fall from bed, initial encounter; Y92.009 Unspecified place in unspecified non-institutional (private) residence as the place of occurrence of the external cause
CPT/HCPCS: 36415; 70450; 72125; 73502; 74176; 85025; 93005; 96360; 96361; 99285